=== PATIENT | male | born 1940 | race Caucasian/White ===

== ENCOUNTER 2017-01-20 11:22 | Emergency (ER) | payer OTHER ==
[~2017-01-20] VITALS: Ht 185.4 cm; Wt 93.4 kg
[~2017-01-20 11:22] MED LIST: CYCL10TA PO; FINA5TAB2 PO; FLUD.1 PO; HYDR25TA5 PO; MECL12.574 PO; OMEP20TA93 PO; RANI150T PO; WARF-23 PO
[2017-01-20 11:29] VITALS: BP 128/62; PULSE 69; RESP 16; TEMP 97.6; O2SAT 99
[2017-01-20 11:45] VITALS: BP_SYST 164; BP_SYST 178; BP_SYST 99; BP_DIAS 65; BP_DIAS 79; BP_DIAS 85; RESP 16
[2017-01-20 12:34] LABS: AUTOMATED NEUTROPHIL # 3.1 TH/MM3 (1.8-7.7); BASOPHIL % 0.7 % (0.0-2.0); EOSINOPHIL # 0.2 TH/MM3 (0-0.4); EOSINOPHIL % 4.5 % (0.0-4.0); HEMATOCRIT 41.7 % (39.0-51.0); HEMO FLAGS DIFF FINAL; LYMPH % 30.3 % (9.0-44.0); LYMPHOCYTE # 1.6 TH/MM3 (1.0-4.8); MEAN CELL VOLUME 90.6 FL (80.0-100.0); MEAN CORPUSCULAR HEMOGLOBIN 30.6 PG (27.0-34.0); MEAN CORPUSCULAR HGB CONC 33.8 % (32.0-36.0); MONO % 9.1 % (0.0-8.0); NEUT % 55.4 % (16.0-70.0); PLATELET COUNT 144 TH/MM3 (150-450); RED BLOOD COUNT 4.61 MIL/MM3 (4.50-5.90); RED CELL DISTRIBUTION WIDTH 12.4 % (11.6-17.2); WHITE BLOOD COUNT 5.4 TH/MM3 (4.0-11.0)
--- NOTE | 2017-01-20 12:38 | PD ---
HPI Chief Complaint: Dizziness Time Seen by Provider: 12:07 Travel History International Travel<30 days: No Contact w/Intl Traveler<30days: No Traveled to known affect area: No History of Present Illness HPI This 76-year-old male is complaining of dizzy spells. He says when he stands up he gets very lightheaded and feels like is given a pass out his episodes of been quite severe recently. He has a history of a prosthetic aortic valve is 1996. He has had a pacemaker for the past 2 years area he is on Florinef 0.1 mg daily. The symptoms have been going on the last few weeks though he has had sporadically through the years. He has been told that his blood pressure dropped when he stands and he does wear compression stockings in addition to taking Florinef PFSH Past Medical History Hx Anticoagulant Therapy: Yes (coumadin) Heart Rhythm Problems: Yes Cancer: No Cardiovascular Problems: Yes (valve/ pacemaker) High Cholesterol: Yes Chest Pain: No Diminished Hearing: Yes Endocrine: No Genitourinary: Yes (SELF CATH) Hypertension: Yes Immune Disorder: No Implanted Vascular Access Dvce: Yes Musculoskeletal: No Neurologic: No Psychiatric: No Reproductive: No Respiratory: No Immunizations Current: Yes Tetanus Vaccination: Unknown Influenza Vaccination: No Past Surgical History Abdominal Surgery: No Cardiac Surgery: Yes (AORTIC VALVE REPLACEMENT) Genitourinary Surgery: No Pacemaker: Yes (07/14/2013) Thoracic Surgery: Yes Tonsillectomy: Yes Other Surgery: Yes (PACEMAKER) Social History Alcohol Use: Yes (5 BEERS DAILY) Tobacco Use: No (FORMER) Substance Use: No Allergies-Medications (Allergen,Severity, Reaction): Coded Allergies: aspirin (Unverified Allergy, Unknown, on coumadin, 01/20/17) Reported Meds & Prescriptions Reported Meds & Active Scripts Active Reported Fludrocortisone (Fludrocortisone Acetate) 0.1 Mg Tab 0.1 Mg PO DAILY Omeprazole 20 Mg Tab 20 Mg PO DAILY Warfarin 5 Mg Tab 5 Mg PO DAILY Meclizine (Meclizine HCl) 12.5 Mg Tab 12.5 Mg PO DIRECTED PRN Review of Systems General / Constitutional: No: Fever, Chills Eyes: No: Diploplia HENT: Positive: Lightheadedness, No: Headaches, Vertigo Cardiovascular: No: Chest Pain or Discomfort, Palpitations Respiratory: No: Cough, Shortness of Breath Gastrointestinal: No: Vomiting, Diarrhea Genitourinary: No: Urgency, Frequency Musculoskeletal: No: Myalgias, Arthralgias Skin: No Rash, No Itching Neurologic: No: Weakness Physical Exam Narrative GENERAL: Well-developed male SKIN: Focused skin assessment warm/dry. HEAD: Atraumatic. Normocephalic. EYES: Pupils equal and round. No scleral icterus. No injection or drainage. ENT: No nasal bleeding or discharge. Mucous membranes pink and moist. NECK: Trachea midline. No JVD. CARDIOVASCULAR: Regular rate and rhythm. No murmur appreciated. RESPIRATORY: No accessory muscle use. Clear to auscultation. Breath sounds equal bilaterally. GASTROINTESTINAL: Abdomen soft, non-tender, nondistended. Hepatic and splenic margins not palpable. MUSCULOSKELETAL: No obvious deformities. No clubbing. No cyanosis. No edema. NEUROLOGICAL: Awake and alert. No obvious cranial nerve deficits. Motor grossly within normal limits. Normal speech. PSYCHIATRIC: Appropriate mood and affect; insight and judgment normal. Data Data Last Documented VS Vital Signs Date Time Temp Pulse Resp B/P (MAP) Pulse Ox O2 Delivery O2 Flow Rate FiO2 01/20/17 11:45 69 16 178/79 (112) 72 16 164/85 (111) 72 16 99/65 (76) 01/20/17 11:43 99 Room Air 01/20/17 11:29 97.6 Orders Orders Complete Blood Count With Diff (01/20/17 12:20) Comprehensive Metabolic Panel (01/20/17 12:20) Troponin I (01/20/17 12:20) Prothrombin Time / Inr (Pt) (01/20/17 12:20) Labs Laboratory Tests Test 01/20/17 11:45 White Blood Count 5.4 TH/MM3 Red Blood Count 4.61 MIL/MM3 Hemoglobin 14.1 GM/DL Hematocrit 41.7 % Mean Corpuscular Volume 90.6 FL Mean Corpuscular Hemoglobin 30.6 PG Mean Corpuscular Hemoglobin Concent 33.8 % Red Cell Distribution Width 12.4 % Platelet Count 144 TH/MM3 Mean Platelet Volume 8.0 FL Neutrophils (%) (Auto) 55.4 % Lymphocytes (%) (Auto) 30.3 % Monocytes (%) (Auto) 9.1 % Eosinophils (%) (Auto) 4.5 % Basophils (%) (Auto) 0.7 % Neutrophils # (Auto) 3.1 TH/MM3 Lymphocytes # (Auto) 1.6 TH/MM3 Monocytes # (Auto) 0.5 TH/MM3 Eosinophils # (Auto) 0.2 TH/MM3 Basophils # (Auto) 0.0 TH/MM3 CBC Comment DIFF FINAL Differential Comment Prothrombin Time 27.0 SEC Prothromb Time International Ratio 2.4 RATIO Blood Urea Nitrogen 19 MG/DL Creatinine 1.20 MG/DL Random Glucose 97 MG/DL Total Protein 7.7 GM/DL Albumin 3.9 GM/DL Calcium Level 9.0 MG/DL Alkaline Phosphatase 72 U/L Aspartate Amino Transf (AST/SGOT) 23 U/L Alanine Aminotransferase (ALT/SGPT) 30 U/L Total Bilirubin 0.6 MG/DL Sodium Level 137 MEQ/L Potassium Level 4.2 MEQ/L Chloride Level 102 MEQ/L Carbon Dioxide Level 27.7 MEQ/L Anion Gap 7 MEQ/L Estimat Glomerular Filtration Rate 59 ML/MIN Troponin I LESS THAN 0.02 NG/ML MDM Medical Decision Making Medical Screen Exam Complete: Yes Emergency Medical Condition: Yes Medical Record Reviewed: Yes Differential Diagnosis Differential includes vertigo, orthostatic hypotension, Narrative Course History: Siblings are always associated with standing and only occur when he is upright. She does have significant orthostatic changes when he stands. He is currently on Florinef 0.1 mg daily. His lab work is unremarkable. I will recommend that he take Florinef 0.2 mg daily and liberalize his salt intake Diagnosis Primary Impression: Orthostatic hypotension Additional Instructions: Increase Florinef to 2 tablets daily Disposition: 01 DISCHARGE HOME Condition: Stable Austin Wilson MD Jan 20, 2017 12:38
[2017-01-20 12:43] LABS: CHLORIDE 102 MEQ/L (98-107); POTASSIUM 4.2 MEQ/L (3.5-5.1); SODIUM (NA) 137 MEQ/L (136-145)
[2017-01-20 12:46] LABS: INTERNATIONAL NORMALIZED RATIO 2.4 RATIO
[2017-01-20 12:47] LABS: ANION GAP 7 MEQ/L (5-15); BICARBONATE 27.7 MEQ/L (21.0-32.0); BLOOD UREA NITROGEN 19 MG/DL (7-18)
[2017-01-20 12:50] LABS: ALT (GPT) 30 U/L (12-78); AST (GOT) 23 U/L (15-37); GLOMERULAR FILTRATION RATE 59 ML/MIN (>89)
[2017-01-20 12:52] LABS: TOTAL BILIRUBIN ADULT 0.6 MG/DL (0.2-1.0)
[2017-01-20 12:53] LABS: ALKALINE PHOSPHATASE 72 U/L (45-117)
[2017-01-20] MEDS ORDERED: FLUD.1 PO (13:09)
[2017-01-20 13:18] VITALS: BP 178/83; PULSE 67; RESP 16; O2SAT 99
== END 2017-01-20 13:39 | disposition home or self-care (01) ==
LOC: PHED 11:22
DX: I95.1 Orthostatic hypotension (principal); I10 Essential (primary) hypertension; E78.00 Pure hypercholesterolemia, unspecified; Z95.0 Presence of cardiac pacemaker; Z95.2 Presence of prosthetic heart valve; Z79.01 Long term (current) use of anticoagulants; Z79.899 Other long term (current) drug therapy
CPT/HCPCS: 80053; 84484; 85025; 85610; 99283

== ENCOUNTER 2017-02-15 14:54 | Emergency (ER) | payer OTHER ==
[~2017-02-15] VITALS: Ht 185.4 cm; Wt 93.5 kg
[~2017-02-15 14:54] MED LIST changes: -CYCL10TA PO; -FINA5TAB2 PO; -HYDR25TA5 PO; -RANI150T PO
[2017-02-15 15:01] VITALS: BP 179/98; PULSE 69; RESP 18; TEMP 98.8; O2SAT 98
[2017-02-15] MEDS ORDERED: TRAM50TA PO (15:13)
[2017-02-15 15:35] VITALS: BP 169/83
--- NOTE | 2017-02-15 15:41 | PD ---
HPI Chief Complaint: Syncope/Near-Syncope Time Seen by Provider: 15:12 Travel History International Travel<30 days: No Contact w/Intl Traveler<30days: No Traveled to known affect area: No History of Present Illness HPI 76-year-old male complains of near syncope. Patient has history of recurrent near syncope for the past 2 years. Patient states that he has frequent dizzy spells on standing up. Patient states that this symptom has been intermittent for the past 2 years. Patient was seen by personal physician and advise take meclizine 25 mg 3 times a day. Patient was seen by side panel hanger and was advised to take Florinef 0.1 mg daily. Patient was seen in emergency room and has CT of the head and neck done in the past which were normal. Patient was advised to increase her Florinef to 0.2 mg daily for the past month. Patient states that he has persistent symptoms of near syncope despite increase in dosage of Florinef. Patient denies any headache. Patient denies any visual change. Patient denies any chest pain or shortness of breath. Patient denies abdominal pain. Patient denies any focal weakness or numbness of extremity. Patient denies any fever chills. Patient denies any nausea vomiting diarrhea. Patient has an appointment with neurologist in 3 days. PFSH Past Medical History Hx Anticoagulant Therapy: Yes Heart Rhythm Problems: Yes Cancer: No Cardiovascular Problems: Yes High Cholesterol: Yes Chest Pain: No Diminished Hearing: Yes Endocrine: No GERD: Yes Genitourinary: Yes (SELF CATH) Hypertension: Yes Immune Disorder: No Implanted Vascular Access Dvce: Yes Musculoskeletal: No Neurologic: No Psychiatric: No Reproductive: No Respiratory: No Immunizations Current: Yes Influenza Vaccination: No ?: Not Past Surgical History Abdominal Surgery: No Cardiac Surgery: Yes (AORTIC VALVE REPLACEMENT) Genitourinary Surgery: No Pacemaker: Yes (07/14/2013) Thoracic Surgery: Yes Tonsillectomy: Yes Other Surgery: Yes (PACEMAKER) Social History Alcohol Use: Yes (5 BEERS DAILY) Tobacco Use: No (FORMER) Substance Use: No Allergies-Medications (Allergen,Severity, Reaction): Coded Allergies: aspirin (Unverified Allergy, Unknown, on coumadin, 02/15/17) Reported Meds & Prescriptions Reported Meds & Active Scripts Active Fludrocortisone (Fludrocortisone Acetate) 0.1 Mg Tab 0.2 Mg PO DAILY Reported Tramadol (Tramadol HCl) 50 Mg Tab 50 Mg PO Q6H PRN Warfarin 5 Mg Tab 5 Mg PO DAILY Meclizine (Meclizine HCl) 12.5 Mg Tab 12.5 Mg PO DIRECTED PRN Review of Systems General / Constitutional: No: Fever Eyes: No: Visual changes HENT: Positive: Lightheadedness, No: Headaches Cardiovascular: No: Chest Pain or Discomfort Respiratory: No: Shortness of Breath Gastrointestinal: No: Abdominal Pain Genitourinary: No: Dysuria Musculoskeletal: No: Pain Skin: No Rash Neurologic: No: Weakness Psychiatric: No: Depression Endocrine: No: Polydipsia Hematologic/Lymphatic: No: Easy Bruising Physical Exam Narrative GENERAL: Well-nourished, well-developed patient. SKIN: Focused skin assessment warm/dry. HEAD: Normocephalic. EYES: No scleral icterus. No injection or drainage. Pupils 2 mm equal reactive. NECK: Supple, trachea midline. No JVD or lymphadenopathy. CARDIOVASCULAR: Regular rate and rhythm without murmurs, gallops, or rubs. RESPIRATORY: Breath sounds equal bilaterally. No accessory muscle use. GASTROINTESTINAL: Abdomen soft, non-tender, nondistended. MUSCULOSKELETAL: No cyanosis, or edema. BACK: Nontender without obvious deformity. No CVA tenderness. Neurologic exam normal. Data Data Last Documented VS Vital Signs Date Time Temp Pulse Resp B/P (MAP) Pulse Ox O2 Delivery O2 Flow Rate FiO2 02/15/17 15:35 169/83 (111) 02/15/17 15:07 69 98 Room Air 02/15/17 15:01 98.8 18 Orders Orders Ed Discharge Order (02/15/17 15:35) [facility] Medical Decision Making Medical Screen Exam Complete: Yes Emergency Medical Condition: Yes Differential Diagnosis Differential diagnosis including orthostatic hypotension, endocrine problem, neurologic problem. Narrative Course 76-year-old male with frequent episodes of near syncope. Patient's on Florinef 0.2 mg daily and meclizine 25 mg 3 times a day. Blood pressure lying down 183/ 106. Blood pressure sitting up was 160/80. Diagnosis Primary Impression: Near syncope Patient Instructions: General Instructions Additional Instructions: Stop meclizine. Continue with Florinef. Follow-up with neurologist as scheduled in 3 days. Return if worse. Med/Other Pt SpecificInfo: Med Stopped Disposition: 01 DISCHARGE HOME Condition: Stable Flavio Phillips MD Feb 15, 2017 15:41
== END 2017-02-15 15:51 | disposition home or self-care (01) ==
LOC: PHED 14:54
DX: R55 Syncope and collapse (principal)
CPT/HCPCS: 99281

== ENCOUNTER 2017-03-31 21:10 | Observation (INO) | payer OTHER, MEDICARE ==
[~2017-03-31] VITALS: Ht 185.4 cm; Wt 95.4 kg
[~2017-03-31 21:10] MED LIST changes: -OMEP20TA93 PO; +TRAM50TA PO
[2017-03-31 21:20] VITALS: BP 167/93; PULSE 90; RESP 18; TEMP 97.6; O2SAT 99
[2017-03-31 21:45] VITALS: O2SAT 99
[2017-03-31] MEDS ORDERED: SODIUM CHLORIDE 0.9% FLUSH 10 ML FLUSH IVF PRN (21:45)
--- NOTE | 2017-03-31 22:26 | RADRPT ---
EXAM DATE/TIME: 03/31/2017 21:59 [facility] COMPARISON: CHEST SINGLE AP, December 24, 2015, 0:43. INDICATIONS : High blood pressure. MEDICAL HISTORY : Hypertension. SURGICAL HISTORY : Pacemaker. Aortic valve replacement. ENCOUNTER: Initial ACUITY: 1 day PAIN SCORE: 0/10 LOCATION: Bilateral chest FINDINGS: A single view of the chest demonstrates the lungs to be symmetrically aerated without evidence of mas s, infiltrate or effusion. The cardiomediastinal contours are unremarkable. Osseous structures are intact. Left-sided pacemaker device. Median sternotomy wires and prosthetic heart valve. CONCLUSION: No acute disease. Jesus Ibrahim Jr., MD on March 31, 2017 at 22:22 Board Certified Radiologist. This report was verified electronically.
[2017-03-31 22:29] LABS: AUTOMATED NEUTROPHIL # 3.4 TH/MM3 (1.8-7.7); BASOPHIL # 0.3 TH/MM3 (0-0.2); BASOPHIL % 4.9 % (0.0-2.0); EOSINOPHIL # 0.3 TH/MM3 (0-0.4); EOSINOPHIL % 4.9 % (0.0-4.0); HEMATOCRIT 41.3 % (39.0-51.0); HEMOGLOBIN 13.8 GM/DL (13.0-17.0); LYMPH % 22.2 % (9.0-44.0); LYMPHOCYTE # 1.2 TH/MM3 (1.0-4.8); MEAN CELL VOLUME 91.2 FL (80.0-100.0); MEAN CORPUSCULAR HEMOGLOBIN 30.4 PG (27.0-34.0); MEAN CORPUSCULAR HGB CONC 33.3 % (32.0-36.0); MEAN PLATELET VOLUME 7.3 FL (7.0-11.0); MONO % 7.6 % (0.0-8.0); MONOCYTE # 0.4 TH/MM3 (0-0.9); NEUT % 60.4 % (16.0-70.0); PLATELET COUNT 188 TH/MM3 (150-450); RED BLOOD COUNT 4.53 MIL/MM3 (4.50-5.90); RED CELL DISTRIBUTION WIDTH 13.4 % (11.6-17.2); WHITE BLOOD COUNT 5.6 TH/MM3 (4.0-11.0)
[2017-03-31 22:44] LABS: INTERNATIONAL NORMALIZED RATIO 2.8 RATIO
[2017-03-31 23:03] VITALS: BP 197/90; PULSE 71; RESP 18; O2SAT 98
[2017-04-01] VITALS (7 sets, daily range): BP systolic 121–183; BP diastolic 64–99; PULSE 73–77; RESP 12–20; TEMP 97.3–98.5; O2SAT 94–99
[2017-04-01] MEDS ORDERED: NITROGLYCERIN 0.4 MG SL 25 TABS/BTL SL ONE
--- NOTE | 2017-04-01 00:01 | PD ---
HPI Chief Complaint: Hypertension Time Seen by Provider: 21:29 Travel History International Travel<30 days: No Contact w/Intl Traveler<30days: No Traveled to known affect area: No History of Present Illness HPI -year-old male presents emergency department for evaluation of elevated blood pressure. The patient states that he had vague sensation on the left side of his chest just lateral to his pacemaker underneath his arm. He states he had some palpitations and thinks that his these make her may malfunction. Fairly anxious on arrival, denies any chest pain or tightness, shortness of breath nausea or vomiting. He states his symptoms started again tonight and he decided to take his blood pressure noted significantly elevated at 200 systolic range, therefore decided to come in and be seen. PFSH Past Medical History Hx Anticoagulant Therapy: Yes Heart Rhythm Problems: Yes Cancer: No Cardiovascular Problems: Yes High Cholesterol: Yes Chest Pain: No Diminished Hearing: Yes Endocrine: No Gastrointestinal Disorders: No GERD: Yes Genitourinary: Yes (SELF CATH) Hypertension: Yes Immune Disorder: No Implanted Vascular Access Dvce: Yes Musculoskeletal: No Neurologic: No Psychiatric: No Reproductive: No Respiratory: No Immunizations Current: Yes Tetanus Vaccination: Unknown Influenza Vaccination: No Past Surgical History Abdominal Surgery: No Cardiac Surgery: Yes (AORTIC VALVE REPLACEMENT) Genitourinary Surgery: No Neurologic Surgery: No Pacemaker: Yes (07/14/2013) Thoracic Surgery: Yes Tonsillectomy: Yes Other Surgery: Yes (PACEMAKER) Social History Alcohol Use: Yes (5 BEERS DAILY) Tobacco Use: No (FORMER) Substance Use: No Allergies-Medications (Allergen,Severity, Reaction): Coded Allergies: aspirin (Unverified Allergy, Unknown, on coumadin, 03/31/17) Reported Meds & Prescriptions Reported Meds & Active Scripts Active Fludrocortisone (Fludrocortisone Acetate) 0.1 Mg Tab 0.2 Mg PO DAILY Reported Tramadol (Tramadol HCl) 50 Mg Tab 50 Mg PO Q6H PRN Warfarin 5 Mg Tab 5 Mg PO DAILY Review of Systems Except as stated in HPI: all other systems reviewed are Neg Physical Exam Narrative GENERAL: wd wn in nad. appears younger than stated age SKIN: Warm and dry. HEAD: Atraumatic. Normocephalic. EYES: Pupils equal and round. No scleral icterus. No injection or drainage. ENT: No nasal bleeding or discharge. Mucous membranes pink and moist. NECK: Trachea midline. No JVD. CARDIOVASCULAR: Regular rate and rhythm. pacemaker site cdi no tenderness RESPIRATORY: No accessory muscle use. Clear to auscultation. Breath sounds equal bilaterally. GASTROINTESTINAL: Abdomen soft, non-tender, nondistended. Hepatic and splenic margins not palpable. MUSCULOSKELETAL: Extremities without clubbing, cyanosis, or edema. No obvious deformities. NEUROLOGICAL: Awake and alert. No obvious cranial nerve deficits. Motor grossly within normal limits. Five out of 5 muscle strength in the arms and legs. Normal speech. PSYCHIATRIC: Appropriate mood and affect; insight and judgment normal. Data Data Last Documented VS Vital Signs Date Time Temp Pulse Resp B/P (MAP) Pulse Ox O2 Delivery O2 Flow Rate FiO2 04/01/17 00:16 74 18 143/77 (99) 98 Room Air 03/31/17 21:20 97.6 Orders Orders Electrocardiogram (03/31/17 21:41) B-Type Natriuretic Peptide (03/31/17 21:41) Complete Blood Count With Diff (03/31/17 21:41) Comprehensive Metabolic Panel (03/31/17 21:41) Magnesium (Mg) (03/31/17 21:41) Prothrombin Time / Inr (Pt) (03/31/17 21:41) Act Partial Throm Time (Ptt) (03/31/17 21:41) Troponin I (03/31/17 21:41) Chest, Single Ap (03/31/17 21:41) Ecg Monitoring (03/31/17 21:41) Iv Access Insert/Monitor (03/31/17 21:41) Oximetry (03/31/17 21:41) Oxygen Administration (03/31/17 21:41) Sodium Chloride 0.9% Flush (Ns Flush) (03/31/17 21:45) Nitroglycerin Sl (Nitrostat Sl) (04/01/17 00:00) Place In Observation (04/01/17 ) Vital Signs (Adult) Q4H (04/01/17 01:52) Activity Oob With Assistance (04/01/17 01:52) Foot Roentgenologist / Telemetry .CONTINUOUS (04/01/17 01:52) Diet Heart Healthy (04/01/17 Breakfast) Sodium Chloride 0.9% Flush (Ns Flush) (04/01/17 02:00) Sodium Chloride 0.9% Flush (Ns Flush) (04/01/17 09:00) Creatine Kinase (Cpk) (04/01/17 05:50) Creatine Kinase (Cpk) (04/01/17 11:50) Troponin I (04/01/17 05:50) Troponin I (04/01/17 11:50) Electrocardiogram (04/01/17 05:50) Electrocardiogram (04/01/17 11:50) Pt Request For Service (04/01/17 01:52) Case Management Consult (04/01/17 01:52) Naloxone Inj (Narcan Inj) (04/01/17 02:00) Consult Cardiology (04/01/17 ) Admit Order (Ed Use Only) (04/01/17 ) Foot Roentgenologist / Telemetry [email or web address] (04/01/17 01:59) Activity Oob With Assistance (04/01/17 01:59) Notify Dr: Other (04/01/17 01:59) (Hub Use Only)Inp Phy Cons/Ref (04/01/17 ) Labs Laboratory Tests Test 03/31/17 22:15 03/31/17 23:50 White Blood Count 5.6 TH/MM3 Red Blood Count 4.53 MIL/MM3 Hemoglobin 13.8 GM/DL Hematocrit 41.3 % Mean Corpuscular Volume 91.2 FL Mean Corpuscular Hemoglobin 30.4 PG Mean Corpuscular Hemoglobin Concent 33.3 % Red Cell Distribution Width 13.4 % Platelet Count 188 TH/MM3 Mean Platelet Volume 7.3 FL Neutrophils (%) (Auto) 60.4 % Lymphocytes (%) (Auto) 22.2 % Monocytes (%) (Auto) 7.6 % Eosinophils (%) (Auto) 4.9 % Basophils (%) (Auto) 4.9 % Neutrophils # (Auto) 3.4 TH/MM3 Lymphocytes # (Auto) 1.2 TH/MM3 Monocytes # (Auto) 0.4 TH/MM3 Eosinophils # (Auto) 0.3 TH/MM3 Basophils # (Auto) 0.3 TH/MM3 CBC Comment DIFF FINAL Differential Comment Prothrombin Time 28.0 SEC Prothromb Time International Ratio 2.8 RATIO Activated Partial Thromboplast Time 32.4 SEC B-Type Natriuretic Peptide 85 PG/ML Blood Urea Nitrogen 11 MG/DL Creatinine 1.00 MG/DL Random Glucose 87 MG/DL Total Protein 7.6 GM/DL Albumin 3.7 GM/DL Calcium Level 8.8 MG/DL Magnesium Level 2.3 MG/DL Alkaline Phosphatase 78 U/L Aspartate Amino Transf (AST/SGOT) 26 U/L Alanine Aminotransferase (ALT/SGPT) 31 U/L Total Bilirubin 0.6 MG/DL Sodium Level 137 MEQ/L Potassium Level 3.7 MEQ/L Chloride Level 102 MEQ/L Carbon Dioxide Level 28.7 MEQ/L Anion Gap 6 MEQ/L Estimat Glomerular Filtration Rate 72 ML/MIN Troponin I 0.07 NG/ML MDM Medical Decision Making Medical Screen Exam Complete: Yes Emergency Medical Condition: Yes Differential Diagnosis ACS, AMI, hypertensive emergency, hypertensive urgency. 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 awaiting chemistry results discussed with dr thomas to follow up amd disposition appropriately Alfa Carranza MD Apr 01, 2017 00:01
[2017-04-01 00:18] LABS: CHLORIDE 102 MEQ/L (98-107); SODIUM (NA) 137 MEQ/L (136-145)
[2017-04-01 00:22] LABS: ALBUMIN 3.7 GM/DL (3.4-5.0); BICARBONATE 28.7 MEQ/L (21.0-32.0); BLOOD UREA NITROGEN 11 MG/DL (7-18); CALCIUM 8.8 MG/DL (8.5-10.1); GLUCOSE,RANDOM 87 MG/DL (74-106); MAGNESIUM 2.3 MG/DL (1.5-2.5)
[2017-04-01 00:25] LABS: ALT (GPT) 31 U/L (12-78); AST (GOT) 26 U/L (15-37); GLOMERULAR FILTRATION RATE 72 ML/MIN (>89)
[2017-04-01 00:27] LABS: TOTAL BILIRUBIN ADULT 0.6 MG/DL (0.2-1.0); TOTAL PROTEIN 7.6 GM/DL (6.4-8.2)
[2017-04-01 00:28] LABS: ALKALINE PHOSPHATASE 78 U/L (45-117)
[2017-04-01 00:30] LABS: TROPONIN I 0.07 NG/ML (0.02-0.05)
--- NOTE | 2017-04-01 01:06 | PD ---
Physical Exam Date Seen by Provider: Apr 01, 2017 Time Seen by Provider: 01:04 Narrative Accepted in transfer of care from Dr Carranza Data Data Last Documented VS Vital Signs Date Time Temp Pulse Resp B/P (MAP) Pulse Ox O2 Delivery O2 Flow Rate FiO2 04/01/17 00:16 74 18 143/77 (99) 98 Room Air 03/31/17 21:20 97.6 Orders Orders Electrocardiogram (03/31/17 21:41) B-Type Natriuretic Peptide (03/31/17 21:41) Complete Blood Count With Diff (03/31/17 21:41) Comprehensive Metabolic Panel (03/31/17 21:41) Magnesium (Mg) (03/31/17 21:41) Prothrombin Time / Inr (Pt) (03/31/17 21:41) Act Partial Throm Time (Ptt) (03/31/17 21:41) Troponin I (03/31/17 21:41) Chest, Single Ap (03/31/17 21:41) Ecg Monitoring (03/31/17 21:41) Iv Access Insert/Monitor (03/31/17 21:41) Oximetry (03/31/17 21:41) Oxygen Administration (03/31/17 21:41) Sodium Chloride 0.9% Flush (Ns Flush) (03/31/17 21:45) Nitroglycerin Sl (Nitrostat Sl) (04/01/17 00:00) Labs Laboratory Tests Test 03/31/17 22:15 03/31/17 23:50 White Blood Count 5.6 TH/MM3 Red Blood Count 4.53 MIL/MM3 Hemoglobin 13.8 GM/DL Hematocrit 41.3 % Mean Corpuscular Volume 91.2 FL Mean Corpuscular Hemoglobin 30.4 PG Mean Corpuscular Hemoglobin Concent 33.3 % Red Cell Distribution Width 13.4 % Platelet Count 188 TH/MM3 Mean Platelet Volume 7.3 FL Neutrophils (%) (Auto) 60.4 % Lymphocytes (%) (Auto) 22.2 % Monocytes (%) (Auto) 7.6 % Eosinophils (%) (Auto) 4.9 % Basophils (%) (Auto) 4.9 % Neutrophils # (Auto) 3.4 TH/MM3 Lymphocytes # (Auto) 1.2 TH/MM3 Monocytes # (Auto) 0.4 TH/MM3 Eosinophils # (Auto) 0.3 TH/MM3 Basophils # (Auto) 0.3 TH/MM3 CBC Comment DIFF FINAL Differential Comment Prothrombin Time 28.0 SEC Prothromb Time International Ratio 2.8 RATIO Activated Partial Thromboplast Time 32.4 SEC B-Type Natriuretic Peptide 85 PG/ML Blood Urea Nitrogen 11 MG/DL Creatinine 1.00 MG/DL Random Glucose 87 MG/DL Total Protein 7.6 GM/DL Albumin 3.7 GM/DL Calcium Level 8.8 MG/DL Magnesium Level 2.3 MG/DL Alkaline Phosphatase 78 U/L Aspartate Amino Transf (AST/SGOT) 26 U/L Alanine Aminotransferase (ALT/SGPT) 31 U/L Total Bilirubin 0.6 MG/DL Sodium Level 137 MEQ/L Potassium Level 3.7 MEQ/L Chloride Level 102 MEQ/L Carbon Dioxide Level 28.7 MEQ/L Anion Gap 6 MEQ/L Estimat Glomerular Filtration Rate 72 ML/MIN Troponin I 0.07 NG/ML [facility] Medical Record Reviewed: Yes Supervised Visit with PARKER: No Interpretation(s) troponin I: 0.07, elevated EKG: Ventricular paced rhythm rate 80 Last Impressions Chest X-Ray 03/31/172140 Signed Impressions: Service Date/Time: Friday, March 31, 2017 21:59 - CONCLUSION: No acute disease. Jesus Ibrahim Jr., MD CBC & BMP Diagram 03/31/17 22:15 03/31/17 23:50 Total Protein 7.6, Albumin 3.7, Calcium Level 8.8, Magnesium Level 2.3, Alkaline Phosphatase 78, Aspartate Amino Transf (AST/SGOT) 26, Alanine Aminotransferase (ALT/SGPT) 31, Total Bilirubin 0.6 Vital Signs Date Time Temp Pulse Resp B/P (MAP) Pulse Ox O2 Delivery O2 Flow Rate FiO2 04/01/17 00:16 74 18 143/77 (99) 98 Room Air 04/01/17 00:10 77 18 135/75 (95) 98 Room Air 03/31/17 23:03 71 18 197/90 (125) 98 Room Air 03/31/17 21:45 99 03/31/17 21:45 99 Room Air 03/31/17 21:45 18 99 Room Air 03/31/17 21:20 97.6 90 18 167/93 (117) 99 Differential Diagnosis please refer to Dr Carranza's dictation Narrative Course Accepted in transfer of care from Dr. Carranza for follow-up of pending labs and cardiac enzymes Patient remains ambulatory about the exam room waiting on lab results Troponin I elevated at 0.07 this information initially with the patient as well as the need for admission of the patient to trend serial enzymes and further evaluate for possible BP related bump in troponin verses ACS versus NSTEMI. Patient's assistant quality manager is Dr. Johnson. At 1:53 AM patient's case discussed with on-call [facility] M.Pearl. will admit as OBS and will trend cardiac enzymes Physician Communication Physician Communication all placed to [facility] service --- discussed with Dr Tracy at 01:53 AM ---OBS Diagnosis Primary Impression: Chest pain Additional Impressions: Elevated troponin I level HTN (hypertension) Admitting Information Admitting Physician Requests: Observation Jackie Robles MD Apr 01, 2017 01:06
[2017-04-01] MEDS ORDERED: SODIUM CHLORIDE 0.9% FLUSH 10 ML FLUSH IV FLUSH PRN (02:00)
[2017-04-01] MEDS ORDERED: NALOXONE HCL 0.4 MG/ML AMP IV PUSH PRN (02:00)
[2017-04-01 07:17] LABS: TROPONIN I 0.07 NG/ML (0.02-0.05)
[2017-04-01] MEDS ORDERED: SODIUM CHLORIDE 0.9% FLUSH 10 ML FLUSH IV FLUSH SCH (09:00)
--- NOTE | 2017-04-01 09:56 | HHI.HP ---
[facility] Primary Care Physician Antoni Lin MD Admission Diagnosis chest pain; elevated troponin I; HTN Diagnoses: (1) Chest pain Diagnosis: Principal (2) Elevated troponin I level Diagnosis: Principal (3) Accelerated hypertension Chief Complaint: Elevated blood pressure Travel History International Travel<30 Days: No Contact w/Intl Traveler <30 Da: No Traveled to Known Affected Are: No History of Present Illness Written by Fran Cosme, acting as scribe for Dr. Abraham on 04/01/17 at 09: 56. 76 year-old male with known history of orthostatic hypotension, aortic valve replacement, history of second-degree AV block, daily alcohol use, history tobacco use who presented to the hospital because of elevated blood pressure. Patient indicates that he was not feeling well yesterday and he checked his blood pressure in it was 213/110, because of that reason he came to emergency department for evaluation. Upon presentation patient blood pressure 167/93. Patient elicited other symptoms which started 2 days ago. He states that 2 nights ago he was sitting and watching TV and he developed a sensation over the left side of his chest just lateral to his pacemaker. He described it as like the pain that he experienced when you pull a muscle. He does not know how long it lasts. He denied any nausea, vomiting, diaphoresis, shortness of breath, dyspnea, lightheadedness, dizziness. He indicates the pain was gone by the time he went to bed. He is not experiencing that pain since that one episode. He woke up yesterday and he just did not feel well so he checked his blood pressure noticed an elevated. Because of blood pressure did not go down that concern him. The patient indicates that he has had workup for lightheaded dizziness in which she came in to the emergency department in January and February. He was found to have orthostatic hypotension in which she is being managed by greens cutter who started him on Florinef 1 tablet daily and he had episode near syncope in February in which he is being followed by a neurologist. Indicates that throughout the last couple months his Florinef had been increased from 1 tablet daily to 3 tablets daily. He had noticed that his blood pressure started to elevate so he decreased his dose down to twice a day approximately 2-3 weeks ago. Patient not indicate any lightheadedness or dizziness. He does not monitor his blood pressure on a regular basis. Patient had workup done emergency department found to have equivocal troponin elevation and was recommended observation the hospital. Review of Systems Eyes: COMPLAINS OF: Photosensitivity Cardiovascular: COMPLAINS OF: Chest pain Neurologic: COMPLAINS OF: Paresthesias Except as stated in HPI: all other systems reviewed are Neg Past Family Social History Past Medical History History of Symptomatic second-degree AV block Orthostatic hypotension Status post aortic valve replacement Chronic alcohol use History tobacco use Past Surgical History Tonsillectomy Mechanical aortic valve replacement Dual chamber ventricular pacemaker Reported Medications Reported Meds & Active Scripts Active Fludrocortisone (Fludrocortisone Acetate) 0.1 Mg Tab 0.2 Mg PO DAILY Reported Tramadol (Tramadol HCl) 50 Mg Tab 50 Mg PO Q6H PRN Warfarin 5 Mg Tab 5 Mg PO DAILY Allergies: Coded Allergies: aspirin (Unverified Allergy, Unknown, on coumadin, 03/31/17) Family History Reviewed and unremarkable for any heart disease, lung disease, kidney disease, cancer, seizures, stroke Social History Patient does continue to drink at least 4 beers daily with shots of liquor intermittently. Patient quit smoking 55 years ago, prior to that he smoked approximately one quarter pack a cigarettes daily. Patient denies any illicit drug use Physical Exam Vital Signs Vital Signs Date Time Temp Pulse Resp B/P (MAP) Pulse Ox O2 Delivery O2 Flow Rate FiO2 04/01/17 04:00 97.3 74 20 183/99 (127) 99 04/01/17 02:53 74 18 98 04/01/17 02:49 77 04/01/17 02:36 77 18 160/80 (106) 98 Room Air 04/01/17 00:16 74 18 143/77 (99) 98 Room Air 04/01/17 00:10 77 18 135/75 (95) 98 Room Air 03/31/17 23:03 71 18 197/90 (125) 98 Room Air 03/31/17 21:45 99 03/31/17 21:45 99 Room Air 03/31/17 21:45 18 99 Room Air 03/31/17 21:20 97.6 90 18 167/93 (117) 99 Physical Exam GENERAL: Well-developed, well-nourished, in no acute distress. alert and orientated HEENT: Head is normocephalic without any lesions or masses noted. Facial features are symmetric. Eyes: Pupils equal round reactive to light. Extraocular muscles are intact. Conjunctivae were clear. Oropharyngeal: Pharynx without any erythema edema. Tongue is midline without deviation. Buccal mucosa is moist without any masses or lesions NECK: Supple without any masses. Trachea midline no deviation. No JVD, no bruits are appreciated CARDIAC: Regular rhythm, regular rate. S1/S2 are heard. No murmurs gallops or rubs. Valve click noted LUNGS: Clear to auscultation bilaterally. No wheeze, rhonchi or rales. No use of accessory muscles on inspiration or expiration. ABDOMEN: Soft, nontender. Nondistended. Bowel sounds heard in all 4 quadrants. No organomegaly or masses. Negative rebound, negative guarding EXTREMITIES: No edema, pulses are equal bilaterally. No cyanosis or clubbing NEUROLOGY: Mood and affect appear appropriate. Cranial nerves II through XII grossly intact. Muscle strength 5/5 in upper and lower extremities bilaterally. Deep tendon reflexes are 2+ in upper and lower extremities bilaterally. Laboratory Laboratory Tests Test 03/31/17 22:15 03/31/17 23:50 04/01/17 06:45 White Blood Count 5.6 Red Blood Count 4.53 Hemoglobin 13.8 Hematocrit 41.3 Mean Corpuscular Volume 91.2 Mean Corpuscular Hemoglobin 30.4 Mean Corpuscular Hemoglobin Concent 33.3 Red Cell Distribution Width 13.4 Platelet Count 188 Mean Platelet Volume 7.3 Neutrophils (%) (Auto) 60.4 Lymphocytes (%) (Auto) 22.2 Monocytes (%) (Auto) 7.6 Eosinophils (%) (Auto) 4.9 Basophils (%) (Auto) 4.9 Neutrophils # (Auto) 3.4 Lymphocytes # (Auto) 1.2 Monocytes # (Auto) 0.4 Eosinophils # (Auto) 0.3 Basophils # (Auto) 0.3 CBC Comment DIFF FINAL Differential Comment Prothrombin Time 28.0 Prothromb Time International Ratio 2.8 Activated Partial Thromboplast Time 32.4 B-Type Natriuretic Peptide 85 Blood Urea Nitrogen 11 Creatinine 1.00 Random Glucose 87 Total Protein 7.6 Albumin 3.7 Calcium Level 8.8 Magnesium Level 2.3 Alkaline Phosphatase 78 Aspartate Amino Transf (AST/SGOT) 26 Alanine Aminotransferase (ALT/SGPT) 31 Total Bilirubin 0.6 Sodium Level 137 Potassium Level 3.7 Chloride Level 102 Carbon Dioxide Level 28.7 Anion Gap 6 Estimat Glomerular Filtration Rate 72 Troponin I 0.07 0.07 Total Creatine Kinase 83 Result Diagram: 03/31/17221403/31/17 2350 Imaging Last Impressions Chest X-Ray 03/31/17 2141 Signed Impressions: Service Date/Time: Friday, March 31, 2017 21:59 - CONCLUSION: No acute disease. MD Jalen Shore Jr. VTE Risk Assessment Jalen VTE Risk Assessment: Mod/High Risk (score >= 2) Caprini Risk Assessment Model Point Value = 1 Point Value = 2 Point Value = 3 Point Value = 5 Age 41-60 Minor surgery BMI > 25 kg/m2 Swollen legs Varicose veins or History of unexplained or recurrent spontaneous Oral contraceptives or hormone replacement Sepsis (< 1 month) Serious lung disease, including pneumonia (< 1 month) Abnormal pulmonary function Acute myocardial infarction Congestive heart failure (< 1 month) History of inflammatory bowel disease Medical patient at bed rest Age 61-74 Arthroscopic surgery Major open surgery (> 45 min) Laparoscopic surgery (> 45 min) Malignancy Confined to bed (> 72 hours) Immobilizing plaster cast Central venous access Age >= 75 History of VTE Family history of VTE Factor V Leiden Prothrombin [id number] Lupus anticoagulant Anticardiolipin antibodies Elevated serum homocysteine Heparin-induced thrombocytopenia Other congenital or acquired thrombophilia Stroke (< 1 month) Elective arthroplasty Hip, pelvis, or leg fracture Acute spinal cord injury (< 1 month) Prophylaxis Regimen Total Risk Factor Score Risk Level Prophylaxis Regimen 0-1 Low Early ambulation 2 Moderate Order ONE of the following: *Sequential Compression Device (SCD) *Heparin 5000 units SQ BID 3-4 Higher Order ONE of the following medications: *Heparin 5000 units SQ TID *Enoxaparin/Lovenox 40 mg SQ daily (WT < 150 kg, CrCl > 30 mL/min) *Enoxaparin/Lovenox 30 mg SQ daily (WT < 150 kg, CrCl > 10-29 mL/min) *Enoxaparin/Lovenox 30 mg SQ BID (WT < 150 kg, CrCl > 30 mL/min) AND/OR *Sequential Compression Device (SCD) 5 or more Highest Order ONE of the following medications: *Heparin 5000 units SQ TID (Preferred with Epidurals) *Enoxaparin/Lovenox 40 mg SQ daily (WT < 150 kg, CrCl > 30 mL/min) *Enoxaparin/Lovenox 30 mg SQ daily (WT < 150 kg, CrCl > 10-29 mL/min) *Enoxaparin/Lovenox 30 mg SQ BID (WT < 150 kg, CrCl > 30 mL/min) AND *Sequential Compression Device (SCD) Assessment and Plan Assessment and Plan Chest pain, atypical Patient with increased risk factors include age, hypertension, history tobacco use Patient with equivocal troponin elevation without any worsening EKG shows ventricular paced rhythm, no changes from previous Patient's greens cutter was consulted Dr. Johnson, who agreed with myocardial perfusion study to evaluate for any ischemia Nuclear stress test was performed which did not indicate any ischemia with low risk Dr. Johnson, indicated that since the stress test is negative patient may be discharged with outpatient follow-up. Accelerated hypertension Multifactorial with patient on Florinef with recent adjustments, chronic alcohol use, stress Blood pressure improved at this time without any medications. Will defer blood pressure management to greens cutter Discussed with patient extensively on maintaining a record of blood pressures to review with his primary medical doctor and greens cutter, Mechanical aortic valve replacement Patient will be continued on Coumadin Daily alcohol use Discussed with patient labile blood pressure with chronic use of alcohol Monitor for withdrawals DVT prevention Patient on Coumadin with INR 2.8 Discharge disposition Plan discharge home in stable condition Activity: Ad aman. Diet: Healthy heart diet Medications per medication reconciliation Follow-up with primary medical doctor in one week Medical Decision Making Impression and Plan This note was transcribed by [email or web address] [[email or web address]]. I, Dr. Jennifer Abraham personally performed the history, physical exam, and medical decision making; and confirmed the accuracy of the information in the transcribed note. Patient seen and a H&P and exam was performed Authenticated by Dr. Jennifer Abraham on 04/01/17 at 12:33. Problem Qualifiers (1) Chest pain: Qualified Codes: R07.9 - Chest pain, unspecified Fran Cosme Apr 01, 2017 09:56 Jennifer Abraham MD Apr 01, 2017 12:34
[2017-04-01 12:20] LABS: TROPONIN I 0.07 NG/ML (0.02-0.05)
[2017-04-01] MEDS ORDERED: REGADENOSON INJ 0.4 MG/5 ML SYR IV ONE (12:49)
--- NOTE | 2017-04-01 14:00 | RADRPT ---
EXAM DATE/TIME: 04/01/2017 12:43 [facility] COMPARISON: No previous studies available for comparison. INDICATIONS : Left sided chest pain with elevated troponins and blood pressure for one day. Angina. DOSE: 26.1 mCi Tc99m Myoview at stress. 8.7 mCi Tc99m Myoview at rest. 0.4 mg Lexiscan STRESS SYMPTOMS: None. EJECTION FRACTION: 62% MEDICAL HISTORY : Hypertension. SURGICAL HISTORY : Tonsillectomy. Pacemaker. ENCOUNTER: Initial ACUITY: 1 day PAIN SCALE: 5/10 LOCATION: Left chest TECHNIQUE: The patient underwent pharmacologic stress with infusion of prescribed dose. Continuous ECG tracing was monitored during stress. Gated SPECT imaging was performed after stress and conventional SPECT i maging was performed at rest. The examination was performed on a SPECT/CT scanner, both attenuation and non-corrected datasets were reviewed. FINDINGS: DISTRIBUTION: The maximum perfused segment at stress is in the septal wall. PERFUSION STUDY: The pattern of perfusion at stress is within normal limits. GATED STUDY: There is intact wall motion and thickening without hypokinetic or dyskinetic segments. CONCLUSION: No reversible perfusion defect to indicate stress-induced myocardial ischemia is identified. RISK CATEGORY: Low (<1% Annual Mortality Rate) Noam Vaughn MD on April 01, 2017 at 13:57 Board Certified Radiologist. This report was verified electronically.
--- NOTE | 2017-04-01 14:38 | HHI.DCPOC ---
Discharge Care Plan Diagnosis: (1) Chest pain (2) Elevated troponin I level (3) Accelerated hypertension Goals to Promote Your Health * To prevent worsening of your condition and complications * To maintain your health at the optimal level Directions to Meet Your Goals Take your medications as prescribed Follow your dietary instruction Follow activity as directed Keep your appointments as scheduled Take your immunizations and boosters as scheduled If your symptoms worsen call your PCP, if no PCP go to Urgent Care Center or Emergency Room Smoking is Dangerous to Your Health. Avoid second hand smoke Call the 24-hour hour crisis hotline for domestic abuse at Fran Cosme Apr 01, 2017 14:38
--- NOTE | 2017-04-01 15:48 | EKG ---
Date Performed: 03/31/2017 Time Performed: 21:56:29 PTAGE: 76 years EKG: ELECTRONIC VENTRICULAR PACEMAKER Since previous tracing, no significant change noted ABNORM AL RHYTHM ECG PREVIOUS TRACING : 12/23/2015 23.53 DOCTOR: Yandy Arriola Interpretating Date/Time 04/01/2017 15:48:00
--- NOTE | 2017-04-01 15:49 | EKG ---
Date Performed: 04/01/2017 Time Performed: 05:07:41 PTAGE: 76 years EKG: ELECTRONIC VENTRICULAR PACEMAKER Since previous tracing, no significant change noted ABNORM AL RHYTHM ECG PREVIOUS TRACING : 03/31/2017 21.56 DOCTOR: Yandy Arriola Interpretating Date/Time 04/01/2017 15:48:19
[2017-04-01] MEDS ORDERED: WARFARIN SOD 5 MG TAB PO SCH (16:00)
--- NOTE | 2017-04-01 16:58 | TR ---
Date Performed: 04/01/2017 Time Performed: 13:09:12 DOCTOR: Deisi Landry DRUG LIST: CLINICAL HISTORY: ANGINA REASON FOR TEST: Angina REASON FOR ENDING: OBSERVATION: CONCLUSION: Lexiscan stress test was performed under standard four minute protocol. Radionuclid e was injected one minute prior to ending the test. No electrocardiographic abormalities were present to suggest ischemia. Nuclear imaging and interpretation are pending. COMMENTS:
--- NOTE | 2017-04-02 11:09 | EKG ---
Date Performed: 04/01/2017 Time Performed: 11:32:03 PTAGE: 76 years EKG: ELECTRONIC ATRIAL PACEMAKER ELECTRONIC VENTRICULAR PACEMAKER ABNORMAL RHYTHM ECG PREVIOUS TRACING : 04/01/2017 05.07 DOCTOR: Kirt Staton Interpretating Date/Time 04/02/2017 11:08:18
== END 2017-04-01 17:04 | disposition home or self-care (01) ==
LOC: PHED 21:10 → PHEDA 04-01 02:01 → PH3B 04-01 02:49
PROVIDERS: ADMIT Hospitalist; ATTEND Hospitalist
DX: R07.89 Other chest pain (principal); I10 Essential (primary) hypertension; R00.2 Palpitations; I20.9 Angina pectoris, unspecified; R74.8 Abnormal levels of other serum enzymes; R94.31 Abnormal electrocardiogram [ECG] [EKG]; E78.00 Pure hypercholesterolemia, unspecified; K21.9 Gastro-esophageal reflux disease without esophagitis; H91.90 Unspecified hearing loss, unspecified ear; Z95.2 Presence of prosthetic heart valve; Z79.01 Long term (current) use of anticoagulants; Z87.891 Personal history of nicotine dependence
CPT/HCPCS: 71045; 78452; 80053; 82550; 83735; 83880; 84484; 85025; 85610; 85730; 93005; 93017; 97161; 99285; A9502; G0378; G8987; G8988; J2785

== ENCOUNTER 2017-08-03 15:13 | Emergency (ER) | payer OTHER, MEDICARE ==
[~2017-08-03] VITALS: Ht 185.4 cm; Wt 100.0 kg
[~2017-08-03 15:13] MED LIST changes: -MECL12.574 PO
[2017-08-03 15:15] VITALS: BP 133/73; PULSE 78; RESP 16; TEMP 97.6; O2SAT 98
[2017-08-03] MEDS ORDERED: SODIUM CHLOR 0.9% 1000 ML INJ 1,000 ML IV ONE (15:50)
[2017-08-03] MEDS ORDERED: SODIUM CHLORIDE 0.9% FLUSH 10 ML FLUSH IVF PRN (16:00)
--- NOTE | 2017-08-03 16:08 | PD ---
HPI Chief Complaint: Dizziness Time Seen by Provider: 15:35 Travel History International Travel<30 days: No Contact w/Intl Traveler<30days: No Traveled to known affect area: No History of Present Illness HPI Patient is a 76 year old male who presents to the ER for blood pressure evaluation. Patient reports that for the past few months, he has been having problems with his blood pressure. Reports that he was told that he had high blood pressure and was on carvedilol. Reports that this medication made his blood pressure drop and Dr. Johnson (his revenue liaison) took him off this medication. Reports that after this was stopped, he was still having episodes of dizziness and lightheadedness, reports that he was diagnosed with orthostatic hypotension. Dr. Johnson had started him on fludrocortisone 0.2mg for his orthostatic hypotension, reports that he stopped taking this 3 weeks ago because he read about the medication and was concerned that this was causing his low blood pressure. Pt did take his blood pressure multiple times today and are listed below. Patient presents to the ER as he would like to know why his blood pressure fluctuates. Patient at this time denies headache/dizzy. Denies vision changes. Denies chest pain or shortness of breath. Denies any fall /trauma. Patient currently asymptomatic Blood pressure log from today 1030AM: 91/60 1130AM: 66/44 1230PM: 107/68 1430PM: 93/59 PFSH Past Medical History Hx Anticoagulant Therapy: Yes Heart Rhythm Problems: Yes Cancer: No Cardiovascular Problems: Yes High Cholesterol: Yes Chest Pain: No Diminished Hearing: Yes Endocrine: No Gastrointestinal Disorders: No GERD: Yes Genitourinary: Yes (SELF CATH) Hypertension: Yes Immune Disorder: No Implanted Vascular Access Dvce: Yes Musculoskeletal: No Neurologic: No Psychiatric: No Reproductive: No Respiratory: No Immunizations Current: Yes Influenza Vaccination: No Past Surgical History Abdominal Surgery: No Cardiac Surgery: Yes (AORTIC VALVE REPLACEMENT) Genitourinary Surgery: No Neurologic Surgery: No Pacemaker: Yes (07/14/2013) Thoracic Surgery: Yes Tonsillectomy: Yes Other Surgery: Yes (PACEMAKER) Social History Alcohol Use: Yes (5 BEERS DAILY) Tobacco Use: No (FORMER) Substance Use: No Allergies-Medications (Allergen,Severity, Reaction): Coded Allergies: aspirin (Unverified Allergy, Unknown, on coumadin, 08/03/17) Reported Meds & Prescriptions Reported Meds & Active Scripts Active Reported Warfarin 5 Mg Tab 5 Mg PO DAILY Review of Systems General / Constitutional: No: Fever Eyes: No: Visual changes HENT: Positive: Lightheadedness, No: Headaches Cardiovascular: No: Chest Pain or Discomfort Respiratory: No: Shortness of Breath Gastrointestinal: No: Abdominal Pain Genitourinary: No: Dysuria Musculoskeletal: No: Pain Skin: No Rash Neurologic: Positive: Dizziness, No: Weakness, Headache Psychiatric: No: Depression Endocrine: No: Polydipsia Hematologic/Lymphatic: No: Easy Bruising Physical Exam Narrative GENERAL: NAD SKIN: Focused skin assessment warm/dry. HEAD: Atraumatic. Normocephalic. EYES: Pupils equal and round. No scleral icterus. No injection or drainage. ENT: No nasal bleeding or discharge. Mucous membranes pink and moist. NECK: Trachea midline. No JVD. CARDIOVASCULAR: +Systolic murmur. No murmur appreciated. RESPIRATORY: No accessory muscle use. Clear to auscultation. Breath sounds equal bilaterally. GASTROINTESTINAL: Abdomen soft, non-tender, nondistended. Hepatic and splenic margins not palpable. MUSCULOSKELETAL: No obvious deformities. No clubbing. No cyanosis. No edema. NEUROLOGICAL: Awake and alert. No obvious cranial nerve deficits. Motor grossly within normal limits. Normal speech. PSYCHIATRIC: Anxious mood and affect; insight and judgment normal. Data Data Last Documented VS Vital Signs Date Time Temp Pulse Resp B/P (MAP) Pulse Ox O2 Delivery O2 Flow Rate FiO2 08/03/17 16:30 70 173/ 72 186/89 (121) 74 168/80 (109) 08/03/17 15:15 97.6 16 98 Orders Orders Electrocardiogram (08/03/17 15:50) Complete Blood Count With Diff (08/03/17 15:50) Comprehensive Metabolic Panel (08/03/17 15:50) Magnesium (Mg) (08/03/17 15:50) Ct Brain W/O Iv Contrast(Rout) (08/03/17 15:50) Ecg Monitoring (08/03/17 15:50) Iv Access Insert/Monitor (08/03/17 15:50) Oximetry (08/03/17 15:50) Sodium Chloride 0.9% Flush (Ns Flush) (08/03/17 16:00) Sodium Chlor 0.9% 1000 Ml Inj (Ns 1000 M (08/03/17 15:50) Orthostatic Vital Signs (08/03/17 15:50) Ed Discharge Order (08/03/17 17:23) Labs Laboratory Tests Test 08/03/17 16:00 White Blood Count 5.1 TH/MM3 Red Blood Count 4.64 MIL/MM3 Hemoglobin 14.1 GM/DL Hematocrit 41.7 % Mean Corpuscular Volume 89.9 FL Mean Corpuscular Hemoglobin 30.4 PG Mean Corpuscular Hemoglobin Concent 33.8 % Red Cell Distribution Width 12.7 % Platelet Count 182 TH/MM3 Mean Platelet Volume 7.4 FL Neutrophils (%) (Auto) 61.2 % Lymphocytes (%) (Auto) 25.3 % Monocytes (%) (Auto) 8.7 % Eosinophils (%) (Auto) 4.5 % Basophils (%) (Auto) 0.3 % Neutrophils # (Auto) 3.2 TH/MM3 Lymphocytes # (Auto) 1.3 TH/MM3 Monocytes # (Auto) 0.4 TH/MM3 Eosinophils # (Auto) 0.2 TH/MM3 Basophils # (Auto) 0.0 TH/MM3 CBC Comment DIFF FINAL Differential Comment Blood Urea Nitrogen 16 MG/DL Creatinine 1.10 MG/DL Random Glucose 102 MG/DL Total Protein 7.6 GM/DL Albumin 3.7 GM/DL Calcium Level 9.1 MG/DL Magnesium Level 2.3 MG/DL Alkaline Phosphatase 79 U/L Aspartate Amino Transf (AST/SGOT) 25 U/L Alanine Aminotransferase (ALT/SGPT) 34 U/L Total Bilirubin 0.6 MG/DL Sodium Level 138 MEQ/L Potassium Level 4.0 MEQ/L Chloride Level 105 MEQ/L Carbon Dioxide Level 29.5 MEQ/L Anion Gap 4 MEQ/L Estimat Glomerular Filtration Rate 65 ML/MIN MDM Medical Decision Making Medical Screen Exam Complete: Yes Emergency Medical Condition: Yes Medical Record Reviewed: Yes Interpretation(s) Vital Signs Date Time Temp Pulse Resp B/P (MAP) Pulse Ox O2 Delivery O2 Flow Rate FiO2 08/03/17 15:15 97.6 78 16 133/73 (93) 98 EKG at 1613: Ventricular paced at 72bpm, qt/qtc: 452/476, no acute changes Differential Diagnosis orthostatic hypotension, arrhythmia, cva, ich, electrolyte abnormality Narrative Course Patient is a 76 year old male who presents to the ER for blood pressure evaluation. Reports that he has been dealing with "high and low blood pressures " for the past few months and is currently not taking any blood pressure medications. He is supposed to take Fludrocortisone but stopped it because he was concerned that this was making his blood pressure drop. Reports that when he has low blood pressures, he gets lightheaded and dizzy and doesn't feel right. Reports that he is here to find out why his blood pressure fluctuates, reports that his revenue liaison cannot provide an explanation for him. During the course of the patients emergency department visit, the patients history, examination, and differential diagnosis were reviewed with the patient. The patient was placed on a awake overnight monitor with oximetry and frequent blood pressure monitoring. The patient had an IV access obtained and blood work sent for analysis. The patient was initially provided IVF The patients laboratory studies were reviewed and remarkable for Laboratory Tests Test 08/03/17 16:00 White Blood Count 5.1 TH/MM3 (4.0-11.0) Red Blood Count 4.64 MIL/MM3 (4.50-5.90) Hemoglobin 14.1 GM/DL (13.0-17.0) Hematocrit 41.7 % (39.0-51.0) Mean Corpuscular Volume 89.9 FL (80.0-100.0) Mean Corpuscular Hemoglobin 30.4 PG (27.0-34.0) Mean Corpuscular Hemoglobin Concent 33.8 % (32.0-36.0) Red Cell Distribution Width 12.7 % (11.6-17.2) Platelet Count 182 TH/MM3 (150-450) Mean Platelet Volume 7.4 FL (7.0-11.0) Neutrophils (%) (Auto) 61.2 % (16.0-70.0) Lymphocytes (%) (Auto) 25.3 % (9.0-44.0) Monocytes (%) (Auto) 8.7 % (0.0-8.0) Eosinophils (%) (Auto) 4.5 % (0.0-4.0) Basophils (%) (Auto) 0.3 % (0.0-2.0) Neutrophils # (Auto) 3.2 TH/MM3 (1.8-7.7) Lymphocytes # (Auto) 1.3 TH/MM3 (1.0-4.8) Monocytes # (Auto) 0.4 TH/MM3 (0-0.9) Eosinophils # (Auto) 0.2 TH/MM3 (0-0.4) Basophils # (Auto) 0.0 TH/MM3 (0-0.2) CBC Comment DIFF FINAL Differential Comment Blood Urea Nitrogen 16 MG/DL (7-18) Creatinine 1.10 MG/DL (0.60-1.30) Random Glucose 102 MG/DL (74-106) Total Protein 7.6 GM/DL (6.4-8.2) Albumin 3.7 GM/DL (3.4-5.0) Calcium Level 9.1 MG/DL (8.5-10.1) Magnesium Level 2.3 MG/DL (1.5-2.5) Alkaline Phosphatase 79 U/L (45-117) Aspartate Amino Transf (AST/SGOT) 25 U/L (15-37) Alanine Aminotransferase (ALT/SGPT) 34 U/L (12-78) Total Bilirubin 0.6 MG/DL (0.2-1.0) Sodium Level 138 MEQ/L (136-145) Potassium Level 4.0 MEQ/L (3.5-5.1) Chloride Level 105 MEQ/L (98-107) Carbon Dioxide Level 29.5 MEQ/L (21.0-32.0) Anion Gap 4 MEQ/L (5-15) Estimat Glomerular Filtration Rate 65 ML/MIN (>89) Radiology studies were reviewed and remarkable for CT the head with no acute intracranial abnormalities, labs and benign and vital signs are stable Vital Signs Date Time Temp Pulse Resp B/P (MAP) Pulse Ox O2 Delivery O2 Flow Rate FiO2 08/03/17 16:30 70 173/ 72 186/89 (121) 74 168/80 (109) 08/03/17 15:15 97.6 78 16 133/73 (93) 98 Patient's vital signs have been stable, he has not been hypertensive in the emergency room. Patient has been having problems with his hypotension for the past few months, discussed with patient need to follow-up with his revenue liaison , Dr. Johnson. Discussed with him that he should also continue to take his Fludrocortisone as this will help with his orthostatic hypotension. Patient is completely asymmetric at this time, vital signs are stable, patient is safe to be discharged home with outpatient follow-up. Diagnosis Primary Impression: Lightheadedness Patient Instructions: General Instructions Additional Instructions: Please provide patient with a copy of their lab work and studies at discharge* * Please follow up with your primary care doctor in 2-3 days Return to the ER if symptoms worsen or progress Return to the ER as needed Please take all medications as prescribed Please follow up with Dr. Johnson as soon as possible Disposition: 01 DISCHARGE HOME Condition: Stable Fernanda Duran DO August 03, 2017 16:08
[2017-08-03 16:21] LABS: AUTOMATED NEUTROPHIL # 3.2 TH/MM3 (1.8-7.7); BASOPHIL % 0.3 % (0.0-2.0); EOSINOPHIL # 0.2 TH/MM3 (0-0.4); EOSINOPHIL % 4.5 % (0.0-4.0); HEMATOCRIT 41.7 % (39.0-51.0); HEMOGLOBIN 14.1 GM/DL (13.0-17.0); LYMPH % 25.3 % (9.0-44.0); LYMPHOCYTE # 1.3 TH/MM3 (1.0-4.8); MEAN CELL VOLUME 89.9 FL (80.0-100.0); MEAN CORPUSCULAR HEMOGLOBIN 30.4 PG (27.0-34.0); MEAN CORPUSCULAR HGB CONC 33.8 % (32.0-36.0); MEAN PLATELET VOLUME 7.4 FL (7.0-11.0); MONO % 8.7 % (0.0-8.0); MONOCYTE # 0.4 TH/MM3 (0-0.9); NEUT % 61.2 % (16.0-70.0); PLATELET COUNT 182 TH/MM3 (150-450); RED BLOOD COUNT 4.64 MIL/MM3 (4.50-5.90); RED CELL DISTRIBUTION WIDTH 12.7 % (11.6-17.2); WHITE BLOOD COUNT 5.1 TH/MM3 (4.0-11.0)
[2017-08-03 16:28] LABS: CHLORIDE 105 MEQ/L (98-107); SODIUM (NA) 138 MEQ/L (136-145)
[2017-08-03 16:30] VITALS: BP_SYST 168; BP_SYST 173; BP_SYST 186; BP_DIAS 80; BP_DIAS 89
[2017-08-03 16:31] LABS: CALCIUM 9.1 MG/DL (8.5-10.1)
[2017-08-03 16:32] LABS: ALBUMIN 3.7 GM/DL (3.4-5.0); BICARBONATE 29.5 MEQ/L (21.0-32.0); BLOOD UREA NITROGEN 16 MG/DL (7-18); GLUCOSE,RANDOM 102 MG/DL (74-106); MAGNESIUM 2.3 MG/DL (1.5-2.5)
[2017-08-03 16:35] LABS: ALT (GPT) 34 U/L (12-78); AST (GOT) 25 U/L (15-37); GLOMERULAR FILTRATION RATE 65 ML/MIN (>89)
[2017-08-03 16:36] LABS: TOTAL BILIRUBIN ADULT 0.6 MG/DL (0.2-1.0); TOTAL PROTEIN 7.6 GM/DL (6.4-8.2)
[2017-08-03 16:38] LABS: ALKALINE PHOSPHATASE 79 U/L (45-117)
--- NOTE | 2017-08-03 17:06 | RADRPT ---
EXAM DATE/TIME: 08/03/2017 16:37 [facility] COMPARISON: CT BRAIN W/O CONTRAST, February 27, 2016, 13:09. INDICATIONS : Hypotensive and dizziness. RADIATION DOSE: 62.04 CTDIvol (mGy) MEDICAL HISTORY : Cardiovascular disease. Hypertension. SURGICAL HISTORY : Tonsillectomy. Pacemaker.Aortic valve replacement. Skull fracture. ENCOUNTER: Initial ACUITY: 2 weeks PAIN SCALE: 0/10 LOCATION: Bilateral cranial TECHNIQUE: Multiple contiguous axial images were obtained of the head. Using automated exposure control and adj ustment of the mA and/or kV according to patient size, radiation dose was kept as low as reasonably a chievable to obtain optimal diagnostic quality images. DICOM format image data is available electro nically for review and comparison. FINDINGS: CEREBRUM: Stable postsurgical features of prior left parietal craniotomy. Moderate diffuse cerebral volume loss . The ventricles are normal for degree of atrophy. No evidence of midline shift, mass lesion, hemorr joanne or acute infarction. No extra-axial fluid collections are seen. POSTERIOR FOSSA: The cerebellum and brainstem are intact. The 4th ventricle is midline. The cerebellopontine angle i s unremarkable. EXTRACRANIAL: The visualized portion of the orbits is intact. Redemonstration of right maxillary sinus disease. SKULL: The calvaria is intact. No evidence of skull fracture. CONCLUSION: 1. No acute intracranial abnormality. Omari Harper MD on August 03, 2017 at 17:02 Board Certified Radiologist. This report was verified electronically.
[2017-08-03 17:26] VITALS: BP 169/73; PULSE 74; RESP 18; O2SAT 98
--- NOTE | 2017-08-03 22:44 | EKG ---
Date Performed: 08/03/2017 Time Performed: 16:13:31 PTAGE: 76 years EKG: ELECTRONIC VENTRICULAR PACEMAKER ABNORMAL RHYTHM ECG PREVIOUS TRACING : 04/01/2017 11.32 No significant change from previous tracing noted. DOCTOR: Jamel Johnson Interpretating Date/Time 08/03/2017 22:43:56
== END 2017-08-03 17:49 | disposition home or self-care (01) ==
LOC: PHED 15:13
DX: I95.1 Orthostatic hypotension (principal); E78.00 Pure hypercholesterolemia, unspecified; K21.9 Gastro-esophageal reflux disease without esophagitis; I10 Essential (primary) hypertension
CPT/HCPCS: 70450; 80053; 83735; 85025; 93005; 96360; 99285; J7030

== ENCOUNTER 2017-08-20 13:01 | Emergency (ER) | payer OTHER, MEDICARE ==
[~2017-08-20] VITALS: Ht 185.4 cm; Wt 97.2 kg
[~2017-08-20 13:01] MED LIST changes: -FLUD.1 PO; -TRAM50TA PO
[2017-08-20 13:04] VITALS: BP 149/80; PULSE 83; RESP 16; TEMP 98.3; O2SAT 98
[2017-08-20] MEDS ORDERED: SODIUM CHLORIDE 0.9% FLUSH 10 ML FLUSH IVF PRN (13:30)
[2017-08-20 13:45] VITALS: BP_SYST 159; BP_SYST 170; BP_SYST 81; BP_DIAS 54; BP_DIAS 72; BP_DIAS 92; RESP 16; RESP 18
[2017-08-20 14:06] LABS: AUTOMATED NEUTROPHIL # 3.5 TH/MM3 (1.8-7.7); BASOPHIL % 0.3 % (0.0-2.0); EOSINOPHIL # 0.2 TH/MM3 (0-0.4); EOSINOPHIL % 4.5 % (0.0-4.0); HEMATOCRIT 42.2 % (39.0-51.0); HEMOGLOBIN 13.4 GM/DL (13.0-17.0); LYMPH % 21.8 % (9.0-44.0); LYMPHOCYTE # 1.2 TH/MM3 (1.0-4.8); MEAN CELL VOLUME 91.7 FL (80.0-100.0); MEAN CORPUSCULAR HEMOGLOBIN 29.2 PG (27.0-34.0); MEAN CORPUSCULAR HGB CONC 31.8 % (32.0-36.0); MONO % 8.4 % (0.0-8.0); MONOCYTE # 0.5 TH/MM3 (0-0.9); PLATELET COUNT 176 TH/MM3 (150-450); RED BLOOD COUNT 4.61 MIL/MM3 (4.50-5.90); RED CELL DISTRIBUTION WIDTH 12.7 % (11.6-17.2); WHITE BLOOD COUNT 5.4 TH/MM3 (4.0-11.0)
[2017-08-20 14:13] LABS: CHLORIDE 102 MEQ/L (98-107); SODIUM (NA) 137 MEQ/L (136-145)
--- NOTE | 2017-08-20 14:13 | PD ---
HPI . Low blood pressure Chief Complaint: Abnormal Results Time Seen by Provider: 13:10 Travel History International Travel<30 days: No Contact w/Intl Traveler<30days: No Traveled to known affect area: No History of Present Illness HPI This patient presents with a chief complaint of low blood pressure. He has a piece of note paper with numerous (several columns worth) of recent blood pressure readings. I asked him why he took his blood pressure so frequently. He states that he takes it frequently because his blood pressure varies frequently. He does report lightheadedness. He states that his lightheadedness is exacerbated by standing and improved by sitting and laying. He states that his current episode of symptoms has been present for about 4 days. The patient reports that he has missed 2 doctor's appointments the past 2 days because he is too lightheaded to drive to them. He did manage to get to the emergency department by private vehicle today. A friend brought him. PFSH Past Medical History Hx Anticoagulant Therapy: Yes Heart Rhythm Problems: Yes Cancer: No Cardiovascular Problems: Yes High Cholesterol: Yes Chest Pain: No Diminished Hearing: Yes Endocrine: No Gastrointestinal Disorders: No GERD: Yes Genitourinary: Yes (SELF CATH) Hypertension: Yes Immune Disorder: No Implanted Vascular Access Dvce: Yes Musculoskeletal: No Neurologic: No Psychiatric: No Reproductive: No Respiratory: No Immunizations Current: Yes ?: Not Past Surgical History Abdominal Surgery: No Cardiac Surgery: Yes (AORTIC VALVE REPLACEMENT) Genitourinary Surgery: No Neurologic Surgery: No Pacemaker: Yes (07/14/2013) Thoracic Surgery: Yes Tonsillectomy: Yes Other Surgery: Yes (PACEMAKER) Social History Alcohol Use: Yes (5 BEERS DAILY) Tobacco Use: No (FORMER) Substance Use: No Allergies-Medications (Allergen,Severity, Reaction): Coded Allergies: aspirin (Verified Allergy, Unknown, on coumadin, 08/20/17) Reported Meds & Prescriptions Reported Meds & Active Scripts Active Reported Warfarin 5 Mg Tab 5 Mg PO DAILY Review of Systems Except as stated in HPI: all other systems reviewed are Neg HENT: Positive: Lightheadedness Cardiovascular: Positive: Palpitations Respiratory: No: Shortness of Breath Physical Exam Narrative GENERAL: Sitting on the side of the bed in no distress. SKIN: warm/dry. Normal color and turgor. HEAD: Normocephalic. Atraumatic. EYES: Pupils equal and round. Extraocular movements are intact. ENT: Mucous membranes pink and moist. NECK: Supple. Full range of motion without pain.. CARDIOVASCULAR: Regular rate and rhythm. Heart sounds are normal. RESPIRATORY: No accessory muscle use. Clear to auscultation. Breath sounds equal bilaterally. GASTROINTESTINAL: Abdomen soft. Nontender. Bowel sounds present. Nondistended. MUSCULOSKELETAL: No obvious deformities. Normal muscle tone. NEUROLOGICAL: Awake and alert. No obvious cranial nerve deficits. Motor grossly within normal limits. Normal speech. [id number] exam is intact. PSYCHIATRIC: Appropriate mood and affect; insight and judgment normal. Data Data Last Documented VS Vital Signs Date Time Temp Pulse Resp B/P (MAP) Pulse Ox O2 Delivery O2 Flow Rate FiO2 08/20/17 13:45 67 16 170/92 (118) 68 18 159/72 (101) 77 18 81/54 (63) 08/20/17 13:22 98 Room Air 08/20/17 13:04 98.3 Orders Orders Electrocardiogram (08/20/17 13:26) Basic Metabolic Panel (Bmp) (08/20/17 13:26) Complete Blood Count With Diff (08/20/17 13:26) Troponin I (08/20/17 13:26) Iv Access Insert/Monitor (08/20/17 13:26) Sodium Chloride 0.9% Flush (Ns Flush) (08/20/17 13:30) Orthostatic Vital Signs (08/20/17 13:26) Labs Laboratory Tests Test 08/20/17 13:51 White Blood Count 5.4 TH/MM3 Red Blood Count 4.61 MIL/MM3 Hemoglobin 13.4 GM/DL Hematocrit 42.2 % Mean Corpuscular Volume 91.7 FL Mean Corpuscular Hemoglobin 29.2 PG Mean Corpuscular Hemoglobin Concent 31.8 % Red Cell Distribution Width 12.7 % Platelet Count 176 TH/MM3 Mean Platelet Volume 7.0 FL Neutrophils (%) (Auto) 65.0 % Lymphocytes (%) (Auto) 21.8 % Monocytes (%) (Auto) 8.4 % Eosinophils (%) (Auto) 4.5 % Basophils (%) (Auto) 0.3 % Neutrophils # (Auto) 3.5 TH/MM3 Lymphocytes # (Auto) 1.2 TH/MM3 Monocytes # (Auto) 0.5 TH/MM3 Eosinophils # (Auto) 0.2 TH/MM3 Basophils # (Auto) 0.0 TH/MM3 CBC Comment DIFF FINAL Differential Comment Blood Urea Nitrogen 11 MG/DL Creatinine 1.10 MG/DL Random Glucose 110 MG/DL Calcium Level 8.7 MG/DL Sodium Level 137 MEQ/L Potassium Level 3.6 MEQ/L Chloride Level 102 MEQ/L Carbon Dioxide Level 29.7 MEQ/L Anion Gap 5 MEQ/L Estimat Glomerular Filtration Rate 65 ML/MIN Troponin I LESS THAN 0.02 NG/ML MDM Medical Decision Making Medical Screen Exam Complete: Yes Emergency Medical Condition: Yes Medical Record Reviewed: Yes (The patient was evaluated here on 08/07 the exact same complaint. The patient has a history of orthostatic hypotension and has been prescribed fludrocortisone by his manager creative. However, he is noncompliant with that medication because he is concerned about possible side effects.) Interpretation(s) EKG shows a paced rhythm. Differential Diagnosis Differential diagnosis of dizziness includes but is not limited to vertigo, dehydration, acute blood loss, sepsis, ACS Narrative Course This patient presents with a chief complaint of lightheadedness and low blood pressure. He takes his blood pressure frequently, multiple times per day. Blood pressure here is normal. CBC & BMP Diagram 08/20/17 13:51 Calcium Level 8.7 trop < 0.02 His orthostatic vital signs were positive. He has a known history of orthostatic hypotension. Diagnosis Primary Impression: Lightheadedness Additional Impression: Orthostatic hypotension Patient Instructions: General Instructions, Hypotension (DC) Additional Instructions: You need to take the medication prescribed by Dr. Johnson for orthostatic hypotension. If you have any questions or concerns about the medication, you need to discuss it with him. Disposition: 01 DISCHARGE HOME Condition: Stable Krissy Mazariegos MD Aug 20, 2017 14:13
[2017-08-20 14:16] LABS: BICARBONATE 29.7 MEQ/L (21.0-32.0); BLOOD UREA NITROGEN 11 MG/DL (7-18); CALCIUM 8.7 MG/DL (8.5-10.1); GLUCOSE,RANDOM 110 MG/DL (74-106)
[2017-08-20 14:20] LABS: GLOMERULAR FILTRATION RATE 65 ML/MIN (>89)
[2017-08-20 14:24] LABS: TROPONIN I LESS THAN 0.02 NG/ML (0.02-0.05)
--- NOTE | 2017-08-21 15:32 | EKG ---
Date Performed: 08/20/2017 Time Performed: 13:30:37 PTAGE: 76 years EKG: ELECTRONIC ATRIAL PACEMAKER ELECTRONIC VENTRICULAR PACEMAKER ABNORMAL RHYTHM ECG Since the PREVIOUS TRACING , no significant change noted PREVIOUS TRACIN08/03/2017 16.13 DOCTOR: Yandy Arriola Interpretating Date/Time 08/21/2017 15:30:55
== END 2017-08-20 15:31 | disposition home or self-care (01) ==
LOC: PHED 13:01
DX: I95.1 Orthostatic hypotension (principal); R42 Dizziness and giddiness; R94.31 Abnormal electrocardiogram [ECG] [EKG]; E78.00 Pure hypercholesterolemia, unspecified; I10 Essential (primary) hypertension; K21.9 Gastro-esophageal reflux disease without esophagitis; Z95.2 Presence of prosthetic heart valve; Z95.0 Presence of cardiac pacemaker
CPT/HCPCS: 80048; 84484; 85025; 93005; 99284

== ENCOUNTER 2017-11-02 13:46 | Observation (INO) ==
--- NOTE | 2017-11-02 14:24 | ED ---
HPI General Chief Complaint: Dizziness Stated Complaint: Dizziness Time Seen by Provider: 11/02/17 13:57 Source: patient Mode of arrival: ambulatory Limitations: no limitations History of Present Illness HPI narrative: The patient is a 76-year-old male who presents to the emergency department for dizziness and lightheadedness. Patient notes symptoms have been ongoing for several months, progressing in the last several weeks. The patient states that he will become lightheaded, feel like he is going to pass out, whenever he lifts his head up or looks down with standing. The patient states he did lose consciousness one time, normally has to lie down flat to avoid from passing out. The patient does note lightheadedness and dizziness with his symptoms, but denies any nausea or vomiting. He denies any palpitations, chest pain, or shortness of breath. The patient does have a history of aortic valve repair in the past, metallic valve, currently on Coumadin. The patient has been followed by his vacuum cleaner assembler, Dr. Johnson, who is going to send him to [facility] for 3 day observation. However, the patient has [employer] and they were unable to approve the observation. He states they were going to send him to the [facility] for 3 days, however, he was unable to go to the [facility] with [employer] insurance. He is also been seen by his neurologist, Dr. Boateng, who thought he may have lack of blood flow to the back of the brain and is going to possibly perform imaging. The patient states he has been admitted for elevated blood pressure in the past at [facility] and had imaging performed at that time. MD complaint: loss of consciousness, felt faint and almost passed out Onset (ago): week(s) -: second(s) Prodromal symptoms: lightheaded Witnessed: yes - by other Context: during exertion Injuries sustained associated with event: none Current symptoms: lightheaded History: previous syncopal episode and pacemaker Treatments prior to arrival: none Related Data Home Medications Medication Instructions Recorded Confirmed warfarin 5 mg PO DAILY 11/02/17 11/02/17 Allergies Allergy/AdvReac Type Severity Reaction Status Date / Time aspirin AdvReac Intermediate on coumadin Verified 11/02/17 14:00 Review of Systems ROS: all other systems reviewed are negative [facility] Medical History Medical History HBP (high blood pressure) (Acute) Hx of aortic valve disease (Acute) Pacemaker (Acute) Surgical History Surgical History Hx of heart surgery (Acute) Social History Social History Substance History: No History of Abuse Second Hand Smoke Exposure: No Smoking Status: Former smoker Tobacco Type: Cigarettes How Often Do You Have a Drink Containing Alcohol: 2 to 4 times a month Recent Travel in [facility] within the Last 8 Weeks: No Recent Out of Country Travel within the Last 8 Weeks: No Immunization History Tetanus Immunization: >5 Years Hx Influenza Vaccine This Season: No Exam Narrative Exam Narrative: GENERAL: Awake, alert, pleasant 76-year-old male who appears his stated age and is in no acute respiratory distress. SKIN: Focused skin assessment warm/dry. Multiple tattoos noted. HEAD: Atraumatic. Normocephalic. EYES: Pupils equal and round. Pupils are 3 mm bilateral and reactive. EOMs are intact. Patient is able to see fingers at a distance of 2 feet without difficulty. ENT: No nasal bleeding or discharge. Mucous membranes pink and moist. TMs are translucent and EACs are clear. NECK: Trachea midline. No JVD. CARDIOVASCULAR: Regular rate and rhythm. No murmur appreciated. Pacemaker in place left chest wall. RESPIRATORY: No accessory muscle use. Clear to auscultation. Breath sounds equal bilaterally. GASTROINTESTINAL: Abdomen soft, non-tender, nondistended. Hepatic and splenic margins not palpable. MUSCULOSKELETAL: No obvious deformities. No clubbing. No cyanosis. No edema. NEUROLOGICAL: Awake and alert. No obvious cranial nerve deficits. Motor grossly within normal limits. Normal speech. Nonfocal. Oriented 4. PSYCHIATRIC: Appropriate mood and affect; insight and judgment normal. Course Initial Documented Vital Signs Temperature 97.8 F 11/02/17 13:49 Pulse Rate 87 11/02/17 13:49 Respiratory Rate 15 11/02/17 13:49 Blood Pressure 103/58 L 11/02/17 13:49 Pulse Oximetry 99 11/02/17 13:49 Last Documented Vital Signs Temperature 97.7 F 11/02/17 13:51 Pulse Rate 75 11/02/17 14:18 Respiratory Rate 16 11/02/17 13:51 Blood Pressure 98/58 L 11/02/17 13:51 Pulse Oximetry 99 11/02/17 13:51 Medical Decision Making MDM Narrative Medical decision making narrative: IV was established, labs are drawn and sent, and the patient was placed on cardiac telemetry monitoring and continuous pulse oximetry monitoring. EKG was ordered and interpreted. Chest x-ray was obtained. Orthostatic vital signs were obtained. Orthostatic vital signs were obtained, the patient was administered IV fluids. I reviewed the EMR, the patient had a negative stress test earlier this year and had a negative CT of the brain in July. The patient may have some vertebrobasilar insufficiency and/ or anomaly with his near syncope and syncope when looking upright and turning his head downward. Therefore, the patient will be a 23-hour observation. He may benefit from reevaluation by his vacuum cleaner assembler, Dr. Johnson, and his neurologist, Dr. Boateng. He does state that Dr. Johnson wanted to do a further investigation into his dizziness and near syncope. Medical Screen Exam Complete: Yes Emergency Medical Condition: Yes Differential Diagnosis Differential Diagnosis: Differential diagnosis includes subclavian steal syndrome, vertebral artery insufficiency, carotid stenosis, arrhythmia, hypotension, medication side effect, autonomic dysfunction, CVA, hyponatremia, vertigo, labyrinthitis. Lab Data Result diagrams: 11/02/17 14:10 11/02/17 14:10 Lab Results 11/02/17 11/02/17 11/02/17 Range/Units 14:10 14:10 14:10 WBC 5.3 (4.0-11.0) th/mm3 RBC 4.40 L (4.50-5.90) mil/mm3 Hgb 14.0 (13.0-17.0) gm/dL Hct 39.9 (39.0-51.0) % MCV 90.7 (80.0-100.0) fL MCH 31.8 (27.0-34.0) pg MCHC 35.0 (32.0-36.0) % RDW 13.3 (11.6-17.2) % Plt Count 197 (150-450) th/mm3 MPV 8.3 (7.0-11.0) fL Neut % (Auto) 71.3 H (16.0-70.0) % Lymph % (Auto) 19.2 (9.0-44.0) % [place] % (Auto) 7.7 (0.0-8.0) % Eos % (Auto) 1.5 (0.0-4.0) % Baso % (Auto) 0.3 (0.0-2.0) % Neut # (Auto) 3.8 (1.8-7.7) th/mm3 Lymph # (Auto) 1.0 (1.0-4.8) th/mm3 [place] # (Auto) 0.4 (0.0-0.9) th/mm3 Eos # (Auto) 0.1 (0.0-0.4) th/mm3 Baso # (Auto) 0.0 (0.0-0.2) th/mm3 WBC Differential . Differential Comment Auto diff final PT 25.2 H (9.8-11.6) sec INR 2.5 Ratio APTT 29.2 (24.3-30.1) sec Sodium 139 (136-145) meq/L Potassium 3.2 L (3.5-5.1) meq/L Chloride 103 (98-107) meq/L Carbon Dioxide 29.2 (21.0-32.0) meq/L Anion Gap 7 (5-15) meq/L BUN 14 (7-18) mg/dL Creatinine 1.24 (0.60-1.30) mg/dL Estimated GFR 56 L (>89) mL/min Random Glucose 156 H (74-106) mg/dL Calcium 8.5 (8.5-10.1) mg/dL Total Bilirubin 0.6 (0.2-1.0) mg/dL AST 30 (15-37) U/L ALT 27 (12-78) U/L Alkaline Phosphatase 86 (45-117) U/L Troponin I Less than 0.02 L (0.02-0.05) ng/mL Total Protein 7.4 (6.4-8.2) g/dL Albumin 3.7 (3.4-5.0) g/dL Imaging Data Radiologist's impression: Chest X-Ray 11/02/17 14:18 CONCLUSION: 1. No acute abnormality or significant interval change. ECG Data EKG Prior to Arrival: No Attestation: I personally reviewed and interpreted this ECG as follows: Interpretation: EKG reveals electronic ventricular pacemaker. Rate 80. Discharge Plan Discharge Disposition Patient Disposition: 30 Still Patient Discharge Condition Condition: Stable Discharge Details Diagnosis: Near syncope, Orthostatic hypotension Physicians Team ED Provider: David Corado Primary Care Provider: Antoni Lin Rxs /Orders / Referrals /Forms Prescriptions: No Action warfarin 5 mg Tablet 5 mg PO DAILY RF: 0 Status ED Status: Admitted Observation Patient
[2017-11-02] MEDS: Sod Chloride 0.9% Inj 1,000 ML IV.CONT SCH ×2 (14:49→16:34)
--- NOTE | 2017-11-02 14:49 | XR ---
EXAM DATE: 11/02/2017 2:38 PM EDT AGE/SEX: 76 years / Male INDICATIONS: Cardiomyopathy CLINICAL DATA: This is the patient's initial encounter. Patient reports that signs and symptoms have been present for 4 - 6 days and indicates a pain score of 0/10. MEDICAL/SURGICAL HISTORY: Chronic obstructive pulmonary disease. Pacemaker. COMPARISON: [facility], CHEST SINGLE AP, 03/31/2017. . FINDINGS: Median sternotomy wires and evidence for cardiac valve replacement. Stable dual lead pacemaker. No ne w focal pleural or parenchymal opacities. Cardiomediastinal contours are within normal limits and sta ble. Bony thorax is intact. CONCLUSION: 1. No acute abnormality or significant interval change. Electronically signed by: Omari Harper MD 11/02/2017 2:48 PM EDT
[2017-11-02 14:55] LABS: Baso % (Auto) 0.3 % (0.0-2.0); Eos # (Auto) 0.1 th/mm3 (0.0-0.4); Eos % (Auto) 1.5 % (0.0-4.0); Hematocrit 39.9 % (39.0-51.0); Lymph % (Auto) 19.2 % (9.0-44.0); Mean Corpuscular Hemoglobin 31.8 pg (27.0-34.0); Mean Corpuscular Volume 90.7 fL (80.0-100.0); Mean Platelet Volume 8.3 fL (7.0-11.0); Mono # (Auto) 0.4 th/mm3 (0.0-0.9); Mono % (Auto) 7.7 % (0.0-8.0); Neut # (Auto) 3.8 th/mm3 (1.8-7.7); Neut % (Auto) 71.3 % (16.0-70.0); Platelet Count 197 th/mm3 (150-450); Red Cell Distribution Width 13.3 % (11.6-17.2); White Blood Count 5.3 th/mm3 (4.0-11.0)
[2017-11-02 15:16] LABS: Activated Partial Thrombo Time 29.2 sec (24.3-30.1); INR 2.5 Ratio; Prothrombin Time 25.2 sec (9.8-11.6)
[2017-11-02 15:20] LABS: Alanine Aminotransferase 27 U/L (12-78); Albumin 3.7 g/dL (3.4-5.0); Alkaline Phosphatase 86 U/L (45-117); Anion Gap 7 meq/L (5-15); Aspartate Aminotransferase 30 U/L (15-37); Blood Urea Nitrogen 14 mg/dL (7-18); Calcium 8.5 mg/dL (8.5-10.1); Carbon Dioxide 29.2 meq/L (21.0-32.0); Chloride 103 meq/L (98-107); Glomerular Filtration Rate 56 mL/min (>89); Glucose,Random 156 mg/dL (74-106); Potassium 3.2 meq/L (3.5-5.1); Sodium 139 meq/L (136-145); Total Protein 7.4 g/dL (6.4-8.2)
[2017-11-02] MEDS ORDERED: Bisacodyl 10 MG Supp RECTAL PRN (16:00)
--- NOTE | 2017-11-02 16:23 | P.HPIM ---
History of Present Illness Service: [facility] Primary Care Physician: Antoni Lin MD Chief Complaint: Dizziness/near syncope History of Present Illness: Patient is a 76-year-old male presented emergency department with dizziness and lightheadedness that has been ongoing. Patient has had ongoing symptoms for several months. It has been worsening over the past several weeks. Patient states that he becomes lightheaded and it feels like he is going to pass out, when he lifts his head up or looks down from standing. States he did lose consciousness once. He normally has to lie down low to the ground or get flat to avoid passing out. He he does have the lightheadedness and dizziness denies any nausea vomiting. Denies any chest pain or palpitations denies any shortness of breath. Has history of an aortic valve repair in the past metallic chronically on Coumadin with an INR of 2.5. His assembly adjuster is Dr. Johnson who is wanted to send him to [facility] but [facility] has not approved that. He was also wanted to send him to [facility] but again [facility] did not approve that. His neurologist is Dr. Boateng has had elevated blood pressure in the past port [place] but now it has remains lower Patient will be admitted to observation regarding the loss of consciousness and felt faint and almost passed out with the lightheadedness has a pacemaker will have that reviewed by the [employer] Review of Systems All other systems reviewed negative except as stated in HPI [facility] - History History Provided By: Patient - Medical History Medical History: Medical History (Last Updated 11/02/17 @ 14:13 by Cass Batista) HBP (high blood pressure) Hx of aortic valve disease Pacemaker - Surgical History Surgical History: Surgical History (Last Updated 11/02/17 @ 14:13 by Cass Batista) Hx of heart surgery - Family History Family History: Family History (Last Updated 11/02/17 @ 16:13 by Rosas Arevalo DO) Other Family history of hypertension - Tobacco History Second Hand Smoke Exposure: No Tobacco Use In Past 30 Days: No (quit 60 years ago) Smoking Status: Former smoker Tobacco Type: Cigarettes - Alcohol History How Often Do You Have a Drink Containing Alcohol: 2 to 4 times a month - Substance Use History Substance History: No History of Abuse - Travel History History of Recent Travel: No Recent Travel in the [place] Within the Last 8 Weeks: No Recent Travel Out of the Country Within the Last 8 Weeks: No - Immunization History Tetanus Immunization: >5 Years Hx Influenza Vaccine This Season: No Medications and Allergies Active Medications: Active Medications Acetaminophen (Tylenol) 650 mg PO Q4H PRN PRN Reason: Temp > 100.4 Al Hydroxide/Mg Hydroxide (Milk Of Magnesia Liq) 30 ml PO Q12H PRN PRN Reason: Mild Constipation Bisacodyl (Dulcolax Supp) 10 mg RECTAL DAILY PRN PRN Reason: SEVERE CONSITIPATION Fludrocortisone Acetate (Florinef) 0.1 mg PO DAILY NATHALIA Fludrocortisone Acetate (Florinef) 0.2 mg PO DAILY NATHALIA Fludrocortisone Acetate (Florinef) 0.1 mg PO DAILY NATHALIA Sodium Chloride (Ns Inj) 1,000 mls @ 100 mls/hr IV.CONT .Q10H NATHALIA Last Admin: 11/02/17 14:49 Dose: 100 mls/hr Sodium Chloride (Ns Inj) 1,000 mls @ 100 mls/hr IV.CONT .Q10H NATHALIA Lactulose (Lactulose Liq) 30 ml PO DAILY PRN PRN Reason: SEVERE CONSITIPATION Ondansetron HCl (Zofran Inj) 4 mg IV.PUSH Q6H PRN PRN Reason: NAUSEA OR VOMITING Senna/Docusate Sodium (Christin-Colace) 1 tab PO BID [facility] Sennosides (Senokot) 17.2 mg PO Q12H PRN PRN Reason: Moderate Constipation Sodium Chloride (Ns Flush) 2 ml IV.FLUSH PRN PRN PRN Reason: FLUSH AFTER USING IV ACCESS Last Admin: 11/02/17 14:49 Dose: 2 ml Warfarin Sodium (Coumadin) 5 mg PO DAILY NATHALIA Allergies Allergy/AdvReac Type Severity Reaction Status Date / Time aspirin AdvReac Intermediate on coumadin Verified 11/02/17 14:00 Home Medications Medication Instructions Recorded Confirmed Type fludrocortisone 0.1 mg PO DAILY 11/02/17 11/02/17 History fludrocortisone 0.2 mg PO DAILY 11/02/17 11/02/17 History warfarin 5 mg PO DAILY 11/02/17 11/02/17 History Exam Vital signs: Vital Signs 11/02/17 13:49 11/02/17 13:51 11/02/17 14:18 Temperature 97.8 F 97.7 F Pulse Rate 87 82 75 Respiratory Rate 15 16 Blood Pressure 103/58 L 98/58 L Pulse Oximetry 99 99 Intake & Output 11/01/17 11/02/17 11/02/17 18:59 06:59 18:59 Weight 92.986 kg Narrative: GENERAL: Awake alert and oriented 3 talkative and cooperative SKIN: Warm and dry. HEAD: Atraumatic. Normocephalic. EYES: Pupils equal and round. No scleral icterus. No injection or drainage. EOMI ENT: No nasal bleeding or discharge. Mucous membranes pink and moist. Tongue is midline NECK: Trachea midline. No JVD. Supple CARDIOVASCULAR: IRRegular rate and rhythm. S1-S2 no S3 or S4 no heave or thrill or rub or gallop has a pacemaker and left-sided chest has a midline incisional scar that is well healed RESPIRATORY: No accessory muscle use. Clear to auscultation. Breath sounds equal bilaterally. GASTROINTESTINAL: Abdomen soft, non-tender, nondistended. Hepatic and splenic margins not palpable. MUSCULOSKELETAL: Extremities without clubbing, cyanosis, or edema. No obvious deformities. NEUROLOGICAL: Awake and alert. No obvious cranial nerve deficits. Motor grossly within normal limits. Five out of 5 muscle strength in the arms and legs. Normal speech. PSYCHIATRIC: Appropriate mood and affect; insight and judgment normal. Results - Labs CBC & Chem 7: 11/02/17 14:10 11/02/17 14:10 Labs: Short CBC 11/02/17 Range/Units 14:10 WBC 5.3 (4.0-11.0) th/mm3 Hgb 14.0 (13.0-17.0) gm/dL Hct 39.9 (39.0-51.0) % Plt Count 197 (150-450) th/mm3 BMP 11/02/17 14:10 Sodium 139 Potassium 3.2 L Chloride 103 Carbon Dioxide 29.2 BUN 14 Creatinine 1.24 Calcium 8.5 Cardiac Enzymes 11/02/17 Range/Units 14:10 Troponin I Less than 0.02 L (0.02-0.05) ng/mL Liver Function 11/02/17 Range/Units 14:10 Total Bilirubin 0.6 (0.2-1.0) mg/dL AST 30 (15-37) U/L ALT 27 (12-78) U/L Alkaline Phosphatase 86 (45-117) U/L Albumin 3.7 (3.4-5.0) g/dL - Imaging Impressions Chest X-Ray 11/02/17 14:18 CONCLUSION: 1. No acute abnormality or significant interval change. Caprini VTE Risk Assessment Caprini VTE Risk Assessment: Moderate/High Risk (score >= 2) Caprini Risk Assessment Model: Point Value = 1 Point Value = 2 Point Value = 3 Point Value = 5 Age 41-60 Minor surgery BMI > 25 kg/m2 Swollen legs Varicose veins or History of unexplained or recurrent spontaneous Oral contraceptives or hormone replacement Sepsis (< 1 month) Serious lung disease, including pneumonia (< 1 month) Abnormal pulmonary function Acute myocardial infarction Congestive heart failure (< 1 month) History of inflammatory bowel disease Medical patient at bed rest Age 61-74 Arthroscopic surgery Major open surgery (> 45 min) Laparoscopic surgery (> 45 min) Malignancy Confined to bed (> 72 hours) Immobilizing plaster cast Central venous access Age >= 75 History of VTE Family history of VTE Factor V Leiden Prothrombin 44918C Lupus anticoagulant Anticardiolipin antibodies Elevated serum homocysteine Heparin-induced thrombocytopenia Other congenital or acquired thrombophilia Stroke (< 1 month) Elective arthroplasty Hip, pelvis, or leg fracture Acute spinal cord injury (< 1 month) Prophylaxis Regimen: Total Risk Factor Score Risk Level Prophylaxis Regimen 0-1 Low Early ambulation 2 Moderate Order ONE of the following: *Sequential Compression Device (SCD) *Heparin 5000 units SQ BID 3-4 Higher Order ONE of the following medications: *Heparin 5000 units SQ TID *Enoxaparin/Lovenox 40 mg SQ daily (WT < 150 kg, CrCl > 30 mL/min) *Enoxaparin/Lovenox 30 mg SQ daily (WT < 150 kg, CrCl > 10-29 mL/min) *Enoxaparin/Lovenox 30 mg SQ BID (WT < 150 kg, CrCl > 30 mL/min) AND/OR *Sequential Compression Device (SCD) 5 or more Highest Order ONE of the following medications: *Heparin 5000 units SQ TID (Preferred with Epidurals) *Enoxaparin/Lovenox 40 mg SQ daily (WT < 150 kg, CrCl > 30 mL/min) *Enoxaparin/Lovenox 30 mg SQ daily (WT < 150 kg, CrCl > 10-29 mL/min) *Enoxaparin/Lovenox 30 mg SQ BID (WT < 150 kg, CrCl > 30 mL/min) AND *Sequential Compression Device (SCD) Assessment and Plan - Plan Near-syncope Orthostatic hypotension -chronically on fludrocortisone -Continue on fluids -Check orthostatics every 6 hours 3 -Consult cardiology -Consult neurology -A.m. labs Has had previous echo and CAT scan of the head Atrial fibrillation/history of pacemaker History of aortic valve replacement with titanium valve -Continue on Coumadin 5 mg p.o. daily -Daily PT/INR -We will have pacemaker reviewed -Trend troponins cardiac enzymes -EKGs Chronic pain for which he takes some Ultram on occasion History of high blood pressure currently hypotensive Blood pressure meds remain on hold We will consult Dr. Boateng and Dr. Johnson We will defer any testing to them May need vertebral or basilar testing but hard to do with his aortic valve replacement May possibly need a tilt table test if it has not been done We will get a.m. labs and check thyroid panels free T4 and TSH and hemoglobin A1c in a.m. labs Hypokalemia will replace Continue on Coumadin for chronic anticoagulation Code Status: FULL CODE Discussed Condition With: RN AND PT AND ER DOC AND FAMILY Discharge Planning: PENDING CLEARANCE BY NEUROLOGY AND CARDIOLOGY
[2017-11-02] MEDS: Senna/Docusate Sodium 8.6/50 MG Tablet PO SCH (21:02)
[2017-11-02 23:35] LABS: Creatine Kinase 101 U/L (39-308)
[2017-11-03 00:31] LABS: Amorphous Sediment,Urine Rare /hpf; Bilirubin,Urine Negative (Negative); Clarity,Urine Hazy (Clear); Color,Urine Yellow (Yellw/Straw); Glucose,Urine (UA) Negative (Negative); Hyaline Casts,Urine 1 /lpf (0-3); Leukocyte Esterase,Urine Large (Negative); Mucus,Urine Few /lpf (Occasional); Nitrite,Urine Positive (Negative); Specific Gravity,Urine 1.008 (1.002-1.035)
[2017-11-03] MEDS: Sod Chloride 0.9% Inj 1,000 ML IV.CONT SCH ×5 (04:41→23:12)
[2017-11-03 08:28] LABS: INR 3.2 Ratio; Prothrombin Time 32.1 sec (9.8-11.6)
[2017-11-03 08:30] LABS: Baso % (Auto) 0.3 % (0.0-2.0); Eos # (Auto) 0.2 th/mm3 (0.0-0.4); Hematocrit 39.4 % (39.0-51.0); Hemoglobin 13.7 gm/dL (13.0-17.0); Lymph # (Auto) 1.6 th/mm3 (1.0-4.8); Lymph % (Auto) 28.8 % (9.0-44.0); Mean Corpuscular HGB Conc 34.9 % (32.0-36.0); Mean Corpuscular Hemoglobin 31.7 pg (27.0-34.0); Mean Corpuscular Volume 90.8 fL (80.0-100.0); Mean Platelet Volume 7.6 fL (7.0-11.0); Mono # (Auto) 0.5 th/mm3 (0.0-0.9); Mono % (Auto) 8.3 % (0.0-8.0); Neut # (Auto) 3.4 th/mm3 (1.8-7.7); Neut % (Auto) 59.6 % (16.0-70.0); Platelet Count 166 th/mm3 (150-450); Red Blood Count 4.34 mil/mm3 (4.50-5.90); Red Cell Distribution Width 13.4 % (11.6-17.2); White Blood Count 5.6 th/mm3 (4.0-11.0)
[2017-11-03 08:48] LABS: Alanine Aminotransferase 28 U/L (12-78); Albumin 3.6 g/dL (3.4-5.0); Anion Gap 10 meq/L (5-15); Aspartate Aminotransferase 24 U/L (15-37); Blood Urea Nitrogen 11 mg/dL (7-18); Calcium 8.6 mg/dL (8.5-10.1); Chloride 105 meq/L (98-107); Glomerular Filtration Rate 82 mL/min (>89); Glucose,Random 122 mg/dL (74-106); Magnesium 1.8 mg/dL (1.5-2.5); Phosphorus 2.5 mg/dL (2.5-4.9); Potassium 3.1 meq/L (3.5-5.1); Sodium 141 meq/L (136-145)
--- NOTE | 2017-11-03 08:54 | MB ---
cc: Jamel Johnson MD DATE: 11/03/2017 REASON FOR CONSULTATION: Dizziness, near syncope. HISTORY OF PRESENT ILLNESS: The patient is a 76-year-old white male with a history of severe aortic stenosis, status post [facility] aortic valve replacement in 1996, symptomatic second-degree AV block, status post pacemaker implant in 2013, who presented to the hospital with complaints of lightheadedness. The patient has had trouble with lightheadedness and near syncope for at least 2 years. Apparently, the symptoms have been somewhat worse in severity over the last few days. 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 In the past, he has lost consciousness 1 or 2 times for a couple of seconds. Some of the lightheadedness does occur upon standing, lasting a few minutes. He reports drinking a lot of water on a daily basis, as well as using salt tablets. Chronically, he has left upper chest pain near his pacemaker site, sometimes lasting up to a few hours with no relationship to exertion. He denies shortness of breath, palpitations, pedal edema, paroxysmal nocturnal dyspnea, fevers. Some time ago, he was started on Florinef, which improved his symptoms somewhat. Even with increased dosing of the Florinef about 3 months ago, he has continued to have intermittent lightheadedness, occasionally to the point of near syncope. We did attempt to refer him to the [facility] for further evaluation and treatment, but it was denied by his insurance. PAST MEDICAL HISTORY: 1. Severe aortic stenosis, status post [facility] [place] aortic valve replacement 04/04/1996. 2. Symptomatic second-degree AV block type 1, status post dual chamber permanent pacemaker implant 07/14/2013. CARDIAC MEDICATIONS: Florinef 0.2 mg in the morning, 0.1 mg in the evening Warfarin 5 mg as directed. ALLERGIES: ASPIRIN. FAMILY HISTORY: Noncontributory. SOCIAL HISTORY: The patient is a former smoker. Drinks occasional alcohol. REVIEW OF SYSTEMS: As in the history of present illness, otherwise negative or noncontributory. He also denies abdominal pain, melena, dyspepsia, bright red blood per rectum. In the last 3 days, he has had a [id number] headache, which he states is somewhat unusual for him. PHYSICAL EXAMINATION: VITAL SIGNS: His blood pressure 147/82 with a pulse of 72, respirations 18. GENERAL: He is a well-developed well-nourished white male, in no acute distress. NECK: Jugular venous pressure is normal. Carotid pulses are 2+ bilaterally and without bruits. CHEST: Reveals clear lungs godfrey. CARDIAC: He has a regular rhythm and rate with a grade I/ systolic ejection murmur heard at the base of the heart. The aortic valve replacement sounds are crisp. ABDOMEN: He has a soft nontender abdomen. Bowel sounds are present. There is no definite hepatosplenomegaly. EXTREMITIES: Reveals no clubbing, cyanosis, or edema. DIAGNOSTIC DATA: EKG shows atrial sensed ventricular paced rhythm. Laboratory data includes normal CBC. Potassium 3.2, BUN 14, creatinine 1.24. Negative cardiac enzymes. AST 30, ALT 27. INR 2.5. Chest x-ray shows no acute disease. IMPRESSION: Chronic intermittent lightheadedness, near-syncope in a 76-year-old white male with a history of aortic valve replacement, pacemaker implant. His symptoms really have been ongoing for at least a couple years. Some of his symptoms do appear to be orthostatic in nature. Despite use of Florinef, salt tablets, adequate water intake, he continues to have symptoms. The patient also complains of "very low" blood pressures at home, sometimes with systolic blood pressures in the 80s. Here in the hospital, he has been hypertensive. He states he has 3 blood pressure machines at home, all of which have been checked for accuracy. Pacemaker interrogations have revealed no evidence for arrhythmias. The patient had an echocardiogram earlier this year showing excellent left ventricular function with normal aortic valve replacement function. RECOMMENDATIONS: I have no other suggestions at this time from a cardiac standpoint. We will try as an outpatient to see if we can get an override for authorization to be evaluated at the [facility]. We will followup as needed the rest of this admission. MD VERÓNICA Oneill/perri , 08:11 AM , 08:20 AM [facility]ITAL[facility]l
[2017-11-03 08:58] LABS: Alkaline Phosphatase 89 U/L (45-117); Total Protein 7.1 g/dL (6.4-8.2)
[2017-11-03 09:06] LABS: Creatine Kinase 96 U/L (39-308)
[2017-11-03] MEDS: Senna/Docusate Sodium 8.6/50 MG Tablet PO SCH ×2 (11:13→21:58)
--- NOTE | 2017-11-03 11:26 | US ---
EXAM DATE: 11/03/2017 11:20 AM EDT AGE/SEX: 76 years / Male INDICATIONS: Syncope. CLINICAL DATA: This is the patient's initial encounter. Patient reports that signs and symptoms have been present for 1 day and indicates a pain score of 0/10. MEDICAL/SURGICAL HISTORY: Hypertension. Aortic stenosis. Pacemaker. Anticoagulant therapy. AV b lock. . Aortic valve repair. Pacemaker implant. COMPARISON: [facility], US CAROTID ARTERIES, 03/04/2017. . VELOCITY PARAMETERS: ICA/CCA Ratio: Right 0.7 , Left 0.7 ICA: Right 69 cm/sec, Left 66 cm/sec CCA: Right 103 cm/sec, Left 98 cm/sec ECA: Right 107 cm/sec, Left 95 cm/sec Vertebral: Right 47 cm/sec antegrade, Left 53 cm/sec antegrade FINDINGS: Right Carotid: Mild arteriosclerotic plaque is visualized.The waveforms are within normal limits. Left Carotid: Moderate arteriosclerotic plaque is visualized. The waveforms are within normal limits . Other: None. CONCLUSION: Right Internal Carotid Artery: No evidence of hemodynamically significant lesion with less than 50% s tenosis. Left Internal Carotid Artery: No evidence of hemodynamically significant lesion with less than 50% st enosis. Electronically signed by: Abdoulaye Burroughs MD 11/03/2017 11:24 AM EDT
[2017-11-03 14:59] LABS: Hemoglobin A1c 5.9 % (4.3-6.0)
[2017-11-03] MEDS ORDERED: Sodium Chloride 1 GM Tablet PO ONE (16:30)
--- NOTE | 2017-11-03 16:42 | P.PNIM ---
Subjective Interval history: 2 syncopal episodes today. This is a recurrent problem for the patient. No new complaints when seen today. Potassium level is low today. Physical Exam Vital signs: Vital Signs 11/02/17 16:51 11/02/17 17:51 11/02/17 19:30 Temperature 97.8 F Pulse Rate 81 Respiratory Rate 16 Blood Pressure 140/81 Pulse Oximetry 98 99 98 11/02/17 20:00 11/03/17 00:00 11/03/17 03:21 Temperature 98.3 F 98.0 F Pulse Rate 82 76 75 Respiratory Rate 18 18 Blood Pressure 121/72 194/100 H 144/83 H Pulse Oximetry 98 99 11/03/17 04:00 11/03/17 07:55 11/03/17 08:00 Temperature 97.9 F 97.7 F Pulse Rate 72 73 70 Respiratory Rate 18 18 Blood Pressure 147/82 H 180/88 H Pulse Oximetry 97 97 96 11/03/17 12:00 11/03/17 12:24 11/03/17 12:25 Temperature 97.8 F Pulse Rate 75 78 82 Respiratory Rate 18 Blood Pressure 190/87 H 166/78 H 103/52 L Pulse Oximetry 99 Intake & Output 11/02/17 11/03/17 11/03/17 18:59 06:59 18:59 Intake Total 200 / 200 480 / 480 640 / 640 Balance 200 / 200 480 / 480 640 / 640 Weight 92.986 kg Intake: Oral 200 / 200 480 / 480 640 / 640 Other: # Voids 2 2 Date of Last Bowel Movement 11/01/17 # Bowel Movements 0 Narrative: GENERAL: NAD, A&Ox3 HEAD: Normocephalic. NECK: Supple, trachea midline. No lymphadenopathy. EYES: No scleral icterus. No injection or drainage. CARDIOVASCULAR: Regular rate and rhythm without murmurs, gallops, or rubs. RESPIRATORY: Breath sounds equal bilaterally. No accessory muscle use. GASTROINTESTINAL: Abdomen soft, non-tender, nondistended. MUSCULOSKELETAL: No cyanosis, or edema. SKIN: Warm and dry. NEURO: No focal neurological deficits. Results - Labs CBC & Chem 7: 11/03/17 07:37 11/03/17 07:37 Laboratory Results - last 24 hr 11/02/17 11/02/17 11/02/17 14:10 14:10 20:40 WBC RBC Hgb Hct MCV MCH MCHC RDW Plt Count MPV Neut % (Auto) Lymph % (Auto) [place] % (Auto) Eos % (Auto) Baso % (Auto) Neut # (Auto) Lymph # (Auto) [place] # (Auto) Eos # (Auto) Baso # (Auto) WBC Differential Differential Comment PT INR Sodium Potassium Chloride Carbon Dioxide Anion Gap BUN Creatinine Estimated GFR Random Glucose Hemoglobin A1c 5.9 Calcium Phosphorus Magnesium Total Bilirubin AST ALT Alkaline Phosphatase Total Creatine Kinase Troponin I Total Protein Albumin TSH Free T4 1.19 Urine Color Yellow Urine Clarity Hazy H Urine pH 6.0 Ur Specific [place] 1.008 Urine Protein Negative Urine Glucose (UA) Negative Urine Ketones Negative Urine Occult Blood Small H Urine Nitrate Positive H Urine Bilirubin Negative Urine Urobilinogen Less than 2 Ur Leukocyte Esterase Large H Urine RBC 7 H Urine WBC 39 H Amorphous Sediment Rare H Hyaline Casts 1 Urine Mucus Few H Micro UA Comment Cath-culture ind Urine Culture Comments Cath-cult indicated 11/02/17 11/03/17 11/03/17 22:30 07:37 07:37 WBC 5.6 RBC 4.34 L Hgb 13.7 Hct 39.4 MCV 90.8 MCH 31.7 MCHC 34.9 RDW 13.4 Plt Count 166 MPV 7.6 Neut % (Auto) 59.6 Lymph % (Auto) 28.8 [place] % (Auto) 8.3 H Eos % (Auto) 3.0 Baso % (Auto) 0.3 Neut # (Auto) 3.4 Lymph # (Auto) 1.6 [place] # (Auto) 0.5 Eos # (Auto) 0.2 Baso # (Auto) 0.0 WBC Differential . Differential Comment Auto diff final PT INR Sodium 141 Potassium 3.1 L Chloride 105 Carbon Dioxide 26.0 Anion Gap 10 BUN 11 Creatinine 0.90 Estimated GFR 82 L Random Glucose 122 H Hemoglobin A1c Calcium 8.6 Phosphorus 2.5 Magnesium 1.8 Total Bilirubin 0.8 AST 24 ALT 28 Alkaline Phosphatase 89 Total Creatine Kinase 101 96 Troponin I Less than 0.02 L Less than 0.02 L Total Protein 7.1 Albumin 3.6 TSH 1.280 Free T4 Urine Color Urine Clarity Urine pH Ur Specific [place] Urine Protein Urine Glucose (UA) Urine Ketones Urine Occult Blood Urine Nitrate Urine Bilirubin Urine Urobilinogen Ur Leukocyte Esterase Urine RBC Urine WBC Amorphous Sediment Hyaline Casts Urine Mucus Micro UA Comment Urine Culture Comments 11/03/17 07:37 WBC RBC Hgb Hct MCV MCH MCHC RDW Plt Count MPV Neut % (Auto) Lymph % (Auto) [place] % (Auto) Eos % (Auto) Baso % (Auto) Neut # (Auto) Lymph # (Auto) [place] # (Auto) Eos # (Auto) Baso # (Auto) WBC Differential Differential Comment PT 32.1 H INR 3.2 Sodium Potassium Chloride Carbon Dioxide Anion Gap BUN Creatinine Estimated GFR Random Glucose Hemoglobin A1c Calcium Phosphorus Magnesium Total Bilirubin AST ALT Alkaline Phosphatase Total Creatine Kinase Troponin I Total Protein Albumin TSH Free T4 Urine Color Urine Clarity Urine pH Ur Specific [place] Urine Protein Urine Glucose (UA) Urine Ketones Urine Occult Blood Urine Nitrate Urine Bilirubin Urine Urobilinogen Ur Leukocyte Esterase Urine RBC Urine WBC Amorphous Sediment Hyaline Casts Urine Mucus Micro UA Comment Urine Culture Comments - Imaging Impressions Carotid Doppler Study 11/03/17 00:00 CONCLUSION: Right Internal Carotid Artery: No evidence of hemodynamically significant lesion with less than 50% stenosis. Left Internal Carotid Artery: No evidence of hemodynamically significant lesion with less than 50% stenosis. Assessment and Plan - Plan 76-year-old male admitted secondary to recurrent syncope Syncope Hypotension Orthostatic hypotension Recurrent Syncope Two additional episodes of syncope today (witnessed) May be related to past neck injury Follow orthostatics Caution with position changes Cardiology following Neurology following Treat electrolytes Trial of NSAIDS for potential inflammatory component (already on fludrocortisone ) Continue fludrocortisone Atrial fibrillation History of pacemaker History of aortic valve replacement with titanium valve Continue on Coumadin 5 mg p.o. daily Follow PT/INR No abnormality on pacemaker interrogation Chronic pain Continue baseline management Hypokalemia Monitor and replace as needed DVT Prophylaxis SCDs
--- NOTE | 2017-11-03 17:19 | ECG ---
Date Performed: 11/02/2017 Time Performed: 14:13:03 PTAGE: 76 years EKG: ELECTRONIC VENTRICULAR PACEMAKER ABNORMAL RHYTHM ECG PREVIOUS TRACING :08/20/2017 @13.30 Since the previous tracing, no significant change noted DOCTOR: Sivakumar Lucero Interpretating Date/Time 11/03/2017 17:18:27
--- NOTE | 2017-11-03 17:31 | MB ---
cc: Manoj Boateng MD, PhD DATE: 11/03/2017 REASON FOR CONSULTATION: Presyncope. HISTORY OF PRESENT ILLNESS: Mr. Tucker is a 76-year-old man known to me who has a history of orthostatic hypotension, takes Florinef 0.2 mg in the morning, 0.1 mg at night. He states he was outside. He was in that heat, developed symptoms of significant lightheadedness and dizziness. It has been getting worse the past several weeks. He denies loss of consciousness. No focal deficits or chest pain. PAST MEDICAL HISTORY: He has a history of [place] aortic valve replacement. He has a history of pacemaker placement, hypertension, orthostatic hypotension. CURRENT MEDICATIONS: 1. He takes Tylenol p.r.n. 2. Florinef 0.1 mg at night, 0.2 mg in the morning. 3. Lactinex. 4. Zofran p.r.n. 5. Klor-Con. 6. Christin-Colace. 7. Senokot. 8. Coumadin. NEUROLOGICAL EXAMINATION: VITAL SIGNS: Blood pressure is 180/88 supine, 103/52 standing, 166/78 sitting. Pulse is 78 sitting, 70 supine, 82 standing, temperature 97.7 degrees. NEUROLOGIC: Higher cortical functions are normal. On motor exam, he has got normal strength and tone. There is no focal deficit. Reflexes are symmetric. His carotid ultrasound less than 50% stenosis bilaterally. LABORATORY DATA: His white count 5600, hemoglobin 13.7, hematocrit 39%, platelet count is 166,000. PT 32.1. INR 3.2. Sodium is 141, potassium 3.1, chloride 105, CO2 26. The BUN is 11, creatinine 0.9, GFR is 82, glucose 122. IMPRESSION: Orthostatic hypotension. 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 PLAN: Would recommend starting him on midodrine 5 mg b.i.d. Continue Florinef. Monitor blood pressure for hypertension. Manoj Boateng MD, PhD KAYLEIGH/mackenzie , 04:25 PM , 04:32 PM
[2017-11-03] MEDS: Lactobacillus Acidophilus/L. Spores Tablet PO SCH ×2 (17:56→23:11)
[2017-11-03] MEDS: Acetaminophen 325 MG Tablet PO PRN (18:03)
[2017-11-03] MEDS: Naproxen 500 MG Tablet PO SCH (21:58)
[2017-11-04] MEDS: Sod Chloride 0.9% Inj 1,000 ML IV.CONT SCH ×2 (05:30→09:33)
[2017-11-04] MEDS ORDERED: Sodium Chloride 1 GM Tablet PO SCH (09:00)
[2017-11-04] MEDS: Lactobacillus Acidophilus/L. Spores Tablet PO SCH ×3 (09:25→18:32)
[2017-11-04] MEDS: Senna/Docusate Sodium 8.6/50 MG Tablet PO SCH ×2 (09:26→20:16)
[2017-11-04] MEDS: Naproxen 500 MG Tablet PO SCH ×2 (09:26→20:15)
[2017-11-04 10:35] LABS: Baso % (Auto) 0.3 % (0.0-2.0); Eos # (Auto) 0.1 th/mm3 (0.0-0.4); Eos % (Auto) 2.6 % (0.0-4.0); Hematocrit 41.3 % (39.0-51.0); Hemoglobin 14.3 gm/dL (13.0-17.0); Lymph # (Auto) 1.2 th/mm3 (1.0-4.8); Lymph % (Auto) 20.6 % (9.0-44.0); Mean Corpuscular HGB Conc 34.6 % (32.0-36.0); Mean Corpuscular Hemoglobin 31.6 pg (27.0-34.0); Mean Corpuscular Volume 91.4 fL (80.0-100.0); Mean Platelet Volume 7.7 fL (7.0-11.0); Mono # (Auto) 0.5 th/mm3 (0.0-0.9); Mono % (Auto) 8.9 % (0.0-8.0); Neut # (Auto) 3.8 th/mm3 (1.8-7.7); Neut % (Auto) 67.6 % (16.0-70.0); Platelet Count 169 th/mm3 (150-450); Red Blood Count 4.52 mil/mm3 (4.50-5.90); Red Cell Distribution Width 13.5 % (11.6-17.2); White Blood Count 5.6 th/mm3 (4.0-11.0)
[2017-11-04 10:36] LABS: INR 2.9 Ratio
[2017-11-04 10:57] LABS: Albumin 3.7 g/dL (3.4-5.0); Anion Gap 6 meq/L (5-15); Aspartate Aminotransferase 26 U/L (15-37); Blood Urea Nitrogen 14 mg/dL (7-18); Calcium 8.8 mg/dL (8.5-10.1); Carbon Dioxide 28.9 meq/L (21.0-32.0); Chloride 104 meq/L (98-107); Glomerular Filtration Rate 72 mL/min (>89); Glucose,Random 148 mg/dL (74-106); Potassium 3.2 meq/L (3.5-5.1); Sodium 139 meq/L (136-145)
[2017-11-04 11:02] LABS: Alanine Aminotransferase 32 U/L (12-78); Alkaline Phosphatase 94 U/L (45-117); Total Protein 7.7 g/dL (6.4-8.2)
--- NOTE | 2017-11-04 13:22 | P.PNIM ---
Subjective Interval history: Hypertensive urgency present status post trial of midodrine. Patient may not be able to benefit from this long-term. No reports of any syncopal episode with ambulation today. Physical Exam Vital signs: Vital Signs 11/03/17 16:00 11/03/17 20:00 11/03/17 20:02 Temperature 98.7 F 97.7 F Pulse Rate 74 78 78 Respiratory Rate 18 18 Blood Pressure 183/84 H 145/74 H 170/72 H Pulse Oximetry 100 99 11/04/17 00:00 11/04/17 04:00 11/04/17 07:29 Temperature 97.2 F L 97.5 F L 97.8 F Pulse Rate 72 68 73 Respiratory Rate 18 18 16 Blood Pressure 107/61 141/78 H 191/94 H Pulse Oximetry 97 96 99 11/04/17 10:59 11/04/17 11:10 11/04/17 11:57 Temperature 97.4 F L Pulse Rate 73 71 Respiratory Rate 16 Blood Pressure 185/81 H 181/82 H Pulse Oximetry 100 Intake & Output 11/03/17 11/04/17 11/04/17 18:59 06:59 18:59 Intake Total 1640 / 1640 1580 / 1580 600 / 600 Output Total 1800 / 1800 Balance 1640 / 1640 -220 / -220 600 / 600 Weight 92.9 kg Intake: IV 1000 / 1000 1100 / 1100 100 / 100 NS Inj 1,000 ML @ 100 mls/hr IV 1000 / 1000 1000 / 1000 .CONT .Q10H NATHALIA Rx#:[id number] Rocephin Inj 1,000 MG In NS Inj 100 / 100 100 / 100 100 ML @ 200 mls/hr IV.SIG Q24H NATHALIA Rx#:[id number] Oral 640 / 640 480 / 480 500 / 500 Output: Urine Amount (Catheter) 1800 / 1800 Straight 1800 / 1800 Other: # Voids 2 Date of Last Bowel Movement 11/01/17 # Bowel Movements 0 Weight On Admission 92.986 kg Narrative: GENERAL: NAD, A&Ox3 HEAD: Normocephalic. NECK: Supple, trachea midline. No lymphadenopathy. EYES: No scleral icterus. No injection or drainage. CARDIOVASCULAR: Regular rate and rhythm without murmurs, gallops, or rubs. RESPIRATORY: Breath sounds equal bilaterally. No accessory muscle use. GASTROINTESTINAL: Abdomen soft, non-tender, nondistended. MUSCULOSKELETAL: No cyanosis, or edema. SKIN: Warm and dry. NEURO: No focal neurological deficits. - Urinary Catheter Management Straight Cath placed during this visit: no Results - Labs CBC & Chem 7: 11/04/17 08:55 11/04/17 08:55 Laboratory Results - last 24 hr 11/02/17 11/02/17 11/04/17 14:10 20:40 08:55 WBC RBC Hgb Hct MCV MCH MCHC RDW Plt Count MPV Neut % (Auto) Lymph % (Auto) [place] % (Auto) Eos % (Auto) Baso % (Auto) Neut # (Auto) Lymph # (Auto) [place] # (Auto) Eos # (Auto) Baso # (Auto) WBC Differential Differential Comment PT 29.0 H INR 2.9 Sodium Potassium Chloride Carbon Dioxide Anion Gap BUN Creatinine Estimated GFR Random Glucose Hemoglobin A1c 5.9 Calcium Total Bilirubin AST ALT Alkaline Phosphatase Total Protein Albumin Urine Color Yellow Urine Clarity Hazy H Urine pH 6.0 Ur Specific [place] 1.008 Urine Protein Negative Urine Glucose (UA) Negative Urine Ketones Negative Urine Occult Blood Small H Urine Nitrate Positive H Urine Bilirubin Negative Urine Urobilinogen Less than 2 Ur Leukocyte Esterase Large H Urine RBC 7 H Urine WBC 39 H Amorphous Sediment Rare H Hyaline Casts 1 Urine Mucus Few H Micro UA Comment Cath-culture ind Urine Culture Comments Cath-cult indicated 11/04/17 11/04/17 08:55 08:55 WBC 5.6 RBC 4.52 Hgb 14.3 Hct 41.3 MCV 91.4 MCH 31.6 MCHC 34.6 RDW 13.5 Plt Count 169 MPV 7.7 Neut % (Auto) 67.6 Lymph % (Auto) 20.6 [place] % (Auto) 8.9 H Eos % (Auto) 2.6 Baso % (Auto) 0.3 Neut # (Auto) 3.8 Lymph # (Auto) 1.2 [place] # (Auto) 0.5 Eos # (Auto) 0.1 Baso # (Auto) 0.0 WBC Differential . Differential Comment Auto diff final PT INR Sodium 139 Potassium 3.2 L Chloride 104 Carbon Dioxide 28.9 Anion Gap 6 BUN 14 Creatinine 1.00 Estimated GFR 72 L Random Glucose 148 H Hemoglobin A1c Calcium 8.8 Total Bilirubin 0.8 AST 26 ALT 32 Alkaline Phosphatase 94 Total Protein 7.7 D Albumin 3.7 Urine Color Urine Clarity Urine pH Ur Specific [place] Urine Protein Urine Glucose (UA) Urine Ketones Urine Occult Blood Urine Nitrate Urine Bilirubin Urine Urobilinogen Ur Leukocyte Esterase Urine RBC Urine WBC Amorphous Sediment Hyaline Casts Urine Mucus Micro UA Comment Urine Culture Comments Microbiology 11/02/17 20:40 Catheterized Urine Urine Culture - Preliminary Staphylococcus coag negative Assessment and Plan - Plan 76-year-old male admitted secondary to recurrent syncope Syncope Hypotension Orthostatic hypotension Recurrent Syncope No further syncope today Etiology for syncope could be related to, or exacerbated by, patient's urinary tract infection Inflammatory component could be present as an exacerbating factor Continue NSAIDs May be related to past neck injury Follow orthostatics Caution with position changes Cardiology following Neurology following Treat electrolytes Continue fludrocortisone Urinary tract infection Chronic urinary obstruction Continue straight cath Follow urine culture Continue Rocephin Atrial fibrillation History of pacemaker History of aortic valve replacement with titanium valve Continue on Coumadin 5 mg p.o. daily Follow PT/INR No abnormality on pacemaker interrogation Chronic pain Continue baseline management Hypokalemia Monitor and replace as needed DVT Prophylaxis SCDs
[2017-11-04] MEDS: Acetaminophen 325 MG Tablet PO PRN (14:17)
[2017-11-04] MEDS ORDERED: Magnesium Citrate Liq 300 ML Bottle PO ONE (14:30)
[2017-11-05] MEDS: Naproxen 500 MG Tablet PO SCH (09:05)
[2017-11-05] MEDS: Senna/Docusate Sodium 8.6/50 MG Tablet PO SCH ×2 (09:05→20:57)
[2017-11-05] MEDS: Lactobacillus Acidophilus/L. Spores Tablet PO SCH ×3 (09:05→18:09)
--- NOTE | 2017-11-05 10:19 | P.PN ---
Subjective Interval history: awake and alert feels episodic lightheadeness neuro exam- though is unremarkable Physical Exam Vital signs: Vital Signs 11/04/17 10:59 11/04/17 11:10 11/04/17 11:57 Temperature 97.4 F L Pulse Rate 73 71 Respiratory Rate 16 Blood Pressure 185/81 H 181/82 H Pulse Oximetry 100 11/04/17 14:47 11/04/17 15:25 11/04/17 16:00 Temperature 97.6 F Pulse Rate 73 Respiratory Rate 18 16 Blood Pressure 137/72 111/73 Pulse Oximetry 100 11/04/17 18:20 11/04/17 19:42 11/04/17 22:00 Temperature 97.8 F Pulse Rate 73 72 Respiratory Rate 18 22 Blood Pressure 139/76 Pulse Oximetry 100 11/04/17 23:35 11/05/17 00:23 11/05/17 02:00 Temperature 97.7 F Pulse Rate 78 76 76 Respiratory Rate 22 16 Blood Pressure 173/87 H 172/82 H Pulse Oximetry 96 11/05/17 03:47 11/05/17 07:10 Temperature 97.5 F L Pulse Rate 71 70 Respiratory Rate 22 16 Blood Pressure 123/74 191/103 H Pulse Oximetry 98 99 Intake & Output 11/04/17 11/05/17 11/05/17 18:59 06:59 18:59 Intake Total 600 / 600 Output Total 1200 / 1200 Balance 600 / 600 -1200 / -1200 Weight 95.9 kg Intake: IV 100 / 100 Rocephin Inj 1,000 MG In NS Inj 100 / 100 100 ML @ 200 mls/hr IV.SIG Q24H NATHALIA Rx#:[id number] Oral 500 / 500 Output: Urine 1200 / 1200 Narrative: GENERAL: NAD, A&Ox3 HEAD: Normocephalic. NECK: Supple, trachea midline. No lymphadenopathy. EYES: No scleral icterus. No injection or drainage. CARDIOVASCULAR: Regular rate and rhythm without murmurs, gallops, or rubs. RESPIRATORY: Breath sounds equal bilaterally. No accessory muscle use. GASTROINTESTINAL: Abdomen soft, non-tender, nondistended. MUSCULOSKELETAL: No cyanosis, or edema. SKIN: Warm and dry. NEURO: No focal neurological deficits.no nystagmu, yusuf od hearing subjectively - Urinary Catheter Management Straight Cath placed during this visit: no Results - Labs CBC & Chem 7: 11/04/17 08:55 11/04/17 08:55 Laboratory Results - last 24 hr 11/02/17 11/04/17 11/04/17 20:40 08:55 08:55 WBC 5.6 RBC 4.52 Hgb 14.3 Hct 41.3 MCV 91.4 MCH 31.6 MCHC 34.6 RDW 13.5 Plt Count 169 MPV 7.7 Neut % (Auto) 67.6 Lymph % (Auto) 20.6 [place] % (Auto) 8.9 H Eos % (Auto) 2.6 Baso % (Auto) 0.3 Neut # (Auto) 3.8 Lymph # (Auto) 1.2 [place] # (Auto) 0.5 Eos # (Auto) 0.1 Baso # (Auto) 0.0 WBC Differential . Differential Comment Auto diff final PT 29.0 H INR 2.9 Sodium Potassium Chloride Carbon Dioxide Anion Gap BUN Creatinine Estimated GFR Random Glucose Calcium Total Bilirubin AST ALT Alkaline Phosphatase Total Protein Albumin Urine Color Yellow Urine Clarity Hazy H Urine pH 6.0 Ur Specific [place] 1.008 Urine Protein Negative Urine Glucose (UA) Negative Urine Ketones Negative Urine Occult Blood Small H Urine Nitrate Positive H Urine Bilirubin Negative Urine Urobilinogen Less than 2 Ur Leukocyte Esterase Large H Urine RBC 7 H Urine WBC 39 H Amorphous Sediment Rare H Hyaline Casts 1 Urine Mucus Few H Micro UA Comment Cath-culture ind Urine Culture Comments Cath-cult indicated 11/04/17 08:55 WBC RBC Hgb Hct MCV MCH MCHC RDW Plt Count MPV Neut % (Auto) Lymph % (Auto) [place] % (Auto) Eos % (Auto) Baso % (Auto) Neut # (Auto) Lymph # (Auto) [place] # (Auto) Eos # (Auto) Baso # (Auto) WBC Differential Differential Comment PT INR Sodium 139 Potassium 3.2 L Chloride 104 Carbon Dioxide 28.9 Anion Gap 6 BUN 14 Creatinine 1.00 Estimated GFR 72 L Random Glucose 148 H Calcium 8.8 Total Bilirubin 0.8 AST 26 ALT 32 Alkaline Phosphatase 94 Total Protein 7.7 D Albumin 3.7 Urine Color Urine Clarity Urine pH Ur Specific [place] Urine Protein Urine Glucose (UA) Urine Ketones Urine Occult Blood Urine Nitrate Urine Bilirubin Urine Urobilinogen Ur Leukocyte Esterase Urine RBC Urine WBC Amorphous Sediment Hyaline Casts Urine Mucus Micro UA Comment Urine Culture Comments Microbiology 11/02/17 20:40 Catheterized Urine Urine Culture - Preliminary Staphylococcus coag negative Assessment and Plan - Plan 76-year-old male admitted secondary to recurrent syncope Syncope Hypotension Orthostatic hypotension Recurrent Syncope No further syncope today Etiology for syncope could be related to, or exacerbated by, patient's urinary tract infection Inflammatory component could be present as an exacerbating factor Continue NSAIDs May be related to past neck injury Follow orthostatics Caution with position changes- patient knows - caution with sitting and getting up- Cardiology following Neurology following Treat electrolytes Continue fludrocortisone- on this as OP d/w staff nurse to check BP sitting- not laying Urinary tract infection Chronic urinary obstruction Continue straight cath Follow urine culture Continue Rocephin Atrial fibrillation History of pacemaker History of aortic valve replacement with titanium valve Continue on Coumadin 5 mg p.o. daily Follow PT/INR No abnormality on pacemaker interrogation Chronic pain Continue baseline management Hypokalemia Monitor and replace as needed DVT Prophylaxis SCDs CM consult- arrange for home [facility]
[2017-11-06] MEDS: Lactobacillus Acidophilus/L. Spores Tablet PO SCH ×2 (08:37→16:54)
[2017-11-06] MEDS: Senna/Docusate Sodium 8.6/50 MG Tablet PO SCH (08:38)
[2017-11-06] MEDS ORDERED: Sulfamethoxazole/Trimethoprim 400/80 MG Tablet PO SCH (09:00)
--- NOTE | 2017-11-06 09:05 | P.PN ---
Subjective Interval history: telemetry - paced rhythm patient is awake and alert, very interactive no complains of headaches, chest pains or shortness of breath up and ambulated with me- no dizziness states Dr. Boateng mentioned a head CT saw PT eval- no need for PT Physical Exam Vital signs: Vital Signs 11/05/17 10:00 11/05/17 11:39 11/05/17 14:21 Temperature 97.5 F L 98.1 F Pulse Rate 70 75 76 Respiratory Rate 16 16 Blood Pressure 108/64 101/58 L Pulse Oximetry 99 99 11/05/17 15:30 11/05/17 19:43 11/05/17 20:00 Temperature 98.0 F 98.4 F Pulse Rate 73 77 72 Respiratory Rate 16 16 Blood Pressure 119/58 L 143/67 H Pulse Oximetry 98 99 11/05/17 21:00 11/06/17 00:00 11/06/17 02:00 Temperature Pulse Rate 72 75 74 Respiratory Rate 22 Blood Pressure 174/82 H 143/72 H Pulse Oximetry 99 11/06/17 07:28 Temperature 97.7 F Pulse Rate 76 Respiratory Rate 16 Blood Pressure 104/56 L Pulse Oximetry 98 Intake & Output 11/05/17 11/06/17 11/06/17 18:59 06:59 18:59 Intake Total 100 / 100 Balance 100 / 100 Intake: IV 100 / 100 Rocephin Inj 1,000 MG In NS Inj 100 / 100 100 ML @ 200 mls/hr IV.SIG Q24H NATHALIA Rx#:[id number] Other: # Voids 2 Date of Last Bowel Movement 11/04/17 11/04/17 Narrative: GENERAL: NAD, A&Ox3 HEAD: Normocephalic. NECK: Supple, trachea midline. No lymphadenopathy. EYES: No scleral icterus. No injection or drainage. CARDIOVASCULAR: Regular rate and rhythm without murmurs, gallops, or rubs. RESPIRATORY: Breath sounds equal bilaterally. No accessory muscle use. GASTROINTESTINAL: Abdomen soft, non-tender, MUSCULOSKELETAL: No cyanosis, or edema. SKIN: Warm and dry. NEURO: No focal neurological deficits.no nystagmus, EOM full range of motion gait steady motor 5/5 - Urinary Catheter Management Straight Cath placed during this visit: no Results - Labs CBC & Chem 7: 11/04/17 08:55 11/04/17 08:55 Microbiology 11/02/17 20:40 Catheterized Urine Urine Culture - Final Staphylococcus hominis-hominis Assessment and Plan - Plan 76-year-old male admitted secondary to recurrent syncope Syncope Hypotension Orthostatic hypotension Recurrent Syncope No further syncope today Etiology for syncope could be related to, or exacerbated by, patient's urinary tract infection Inflammatory component could be present as an exacerbating factor Continue NSAIDs May be related to past neck injury Follow orthostatics Caution with position changes- patient knows - caution with sitting and getting up- Cardiology following Neurology following Treat electrolytes Continue fludrocortisone- on this as OP d/w staff nurse to check BP sitting- not laying get a head CT Urinary tract infection Chronic urinary obstruction- does self cathtereization Continue straight cath- discussed with him sterile- technique- sttes he does Follow urine culture- s. [place] On Rocephin sensitivity back- sensitive to Bactrim- will change to po bactrim repeat UA as OP Atrial fibrillation History of pacemaker History of aortic valve replacement with titanium valve Continue on Coumadin 5 mg p.o. daily Follow PT/INR No abnormality on pacemaker interrogation Chronic pain Continue baseline management Hypokalemia Monitor and replace as needed DVT Prophylaxis SCDs CM consult- arrange for home [facility] arrangements OP ff up with Dr. Lionel Lin. Dr. Johnson
--- NOTE | 2017-11-06 09:22 | P.DCO ---
- Home Health Nursing Order: Medical education, Signs/symptoms of disease process, Medication education-adverse effect, Nursing assessment with vital signs, Burch catheter maintenance (does self catheterization) - Case Management Consult Yes - Certification I have seen patient Estevan Tucker on 11/06/17. My clinical findings support the need for the requested home health care services because: Limited mobility due to disease progression (please have nursing check BP s sitting and laying- sent to PCP), High risk of falls I certify that my clinical findings support that this patient is homebound because: Need for psychosocial assistance
--- NOTE | 2017-11-06 10:39 | CT ---
EXAM DATE: 11/06/2017 10:35 AM EDT AGE/SEX: 76 years / Male INDICATIONS: Dizziness. CLINICAL DATA: This is the patient's initial encounter. Patient reports that signs and symptoms have been present for 1 day and indicates a pain score of 0/10. MEDICAL/SURGICAL HISTORY: Hypertension. Traumatic brain injury. Pacemaker. Metal plate on skull. RADIATION DOSE: 38.35 CTDI (mGy) COMPARISON: [facility], CT BRAIN W/O CONTRAST, 08/03/2017. . TECHNIQUE: CT of the head without contrast. Using automated exposure control and adjustment of the mA and/or kV according to patient size, radiation dose was kept as low as reasonably achievable to ob tain optimal diagnostic quality images. DICOM format image data is available electronically for revi ew and comparison. FINDINGS: Previous left parietal craniotomy with calvarial reconstruction. Brain is stable symmetric and unrema rkable with no evidence of mass or hemorrhage. Nothing to suggest acute infarction. Ventricles are sy mmetric and normal. Mild mucosal disease in facial sinuses and mild fluid in right-sided mastoid air cells. CONCLUSION: No acute intracranial findings. . Electronically signed by: Lionel Bonilla MD 11/06/2017 10:38 AM EDT
[2017-11-06] MEDS: Acetaminophen 325 MG Tablet PO PRN (11:01)
--- NOTE | 2017-12-09 11:57 | P.DS ---
Date of admission: 11/02/17 15:45 Primary care physician: Antoni Lin MD Anticipated date of discharge: 11/06/17 Brief History from admission: Patient is a 76-year-old male presented emergency department with dizziness and lightheadedness that has been ongoing. Patient has had ongoing symptoms for several months. It has been worsening over the past several weeks. Patient states that he becomes lightheaded and it feels like he is going to pass out, when he lifts his head up or looks down from standing. States he did lose consciousness once. He normally has to lie down low to the ground or get flat to avoid passing out. He he does have the lightheadedness and dizziness denies any nausea vomiting. Denies any chest pain or palpitations denies any shortness of breath. Has history of an aortic valve repair in the past metallic chronically on Coumadin with an INR of 2.5. 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 Johnson who is wanted to send him to [facility] but [facility] has not approved that. He was also wanted to send him to [facility] but again [facility] did not approve that. His neurologist is Dr. Boateng has had elevated blood pressure in the past [place] but now it has remains lower Patient will be admitted to observation regarding the loss of consciousness and felt faint and almost passed out with the lightheadedness has a pacemaker will have that reviewed by the [employer] rep Patient update on day of discharge: awake and alert, no dizziness, gait steady DS: Medications - Discharge Medications Prescriptions: midodrine 5 mg PO BID #60 tab sulfamethoxazole-trimethoprim 1 tab PO Q12HR #10 tab DS: Summary Hospital Course: 76-year-old male admitted secondary to recurrent syncope Syncope Hypotension Orthostatic hypotension Recurrent Syncope No further syncope today Etiology for syncope could be related to, or exacerbated by, patient's urinary tract infection Inflammatory component could be present as an exacerbating factor Continue NSAIDs May be related to past neck injury Follow orthostatics Caution with position changes- patient knows - caution with sitting and getting up- Cardiology following Neurology following Treat electrolytes Continue fludrocortisone- on this as OP d/w staff nurse to check BP sitting- not laying get a head CT Urinary tract infection Chronic urinary obstruction- does self cathtereization Continue straight cath- discussed with him sterile- technique- sttes he does Follow urine culture- s. [place] On Rocephin sensitivity back- sensitive to Bactrim- will change to po bactrim repeat UA as OP Atrial fibrillation History of pacemaker History of aortic valve replacement with titanium valve Continue on Coumadin 5 mg p.o. daily Follow PT/INR No abnormality on pacemaker interrogation Chronic pain Continue baseline management Hypokalemia Monitor and replace as needed DVT Prophylaxis SCDs CM consult- arrange for home [facility] arrangements OP ff up with Dr. Lionel Lin. Dr. Johnson - Time Spent with Patient Total time spent providing and/or coordinating discharge services: Greater than 30 minutes - Quality: VTE Deep Vein Thrombosis/Pulmonary Embolism Present on Admission: No Exam Narrative: GENERAL: NAD, A&Ox3 HEAD: Normocephalic. NECK: Supple, trachea midline. No lymphadenopathy. EYES: No scleral icterus. No injection or drainage. CARDIOVASCULAR: Regular rate and rhythm without murmurs, gallops, or rubs. RESPIRATORY: Breath sounds equal bilaterally. No accessory muscle use. GASTROINTESTINAL: Abdomen soft, non-tender, MUSCULOSKELETAL: No cyanosis, or edema. SKIN: Warm and dry. NEURO: No focal neurological deficits.no nystagmus, EOM full range of motion gait steady motor 5/5 Results Procedures completed during hospitalization: none - Impressions ITS Impressions Chest X-Ray 11/02/17 14:18 CONCLUSION: 1. No acute abnormality or significant interval change. Carotid Doppler Study 11/03/17 00:00 CONCLUSION: Right Internal Carotid Artery: No evidence of hemodynamically significant lesion with less than 50% stenosis. Left Internal Carotid Artery: No evidence of hemodynamically significant lesion with less than 50% stenosis. Head CT 11/06/17 00:00 CONCLUSION: No acute intracranial findings. . Discharge Plan - Discharge Disposition Patient Disposition: W/Home Health Service - Discharge Condition Condition: Stable - Discharge Order Discharge Orders: Discharge Order (Routine); Ordered 11/06/17 Ordered By: Emmanuel Alfaro - Physicians Team Primary Care Provider: Antoni Lin Attending Provider: Emmanuel Alfaro Other Providers: Jamel Johnson MD ; Abdoulaye York MD ; Deon Chavarria
== END 2017-11-06 16:19 | disposition home health service (06) ==
LOC: NEPE 13:46 → NEDA 13:46 → NEPGCP 18:00
PROVIDERS: ADMIT Internal Medicine; ATTEND Internal Medicine
DX: Z95.2 Presence of prosthetic heart valve; E87.6 Hypokalemia; F17.210 Nicotine dependence, cigarettes, uncomplicated; Z82.49 Family history of ischemic heart disease and other diseases of the circulatory system; I10 Essential (primary) hypertension; Z79.01 Long term (current) use of anticoagulants; B95.7 Other staphylococcus as the cause of diseases classified elsewhere; R07.89 Other chest pain; Z95.0 Presence of cardiac pacemaker; I35.0 Nonrheumatic aortic (valve) stenosis; G89.29 Other chronic pain; R55 Syncope and collapse; I48.91 Unspecified atrial fibrillation; N39.0 Urinary tract infection, site not specified; N13.9 Obstructive and reflux uropathy, unspecified